=== PATIENT | female | born 1955 | race Caucasian/White ===

== ENCOUNTER → 2019-12-22 14:45 | Outpatient (BNVA) | payer MEDICARE, SELFPAY | PROVIDERS: Family Provider Family Medicine; Visit Provider Podiatrist Foot & Ankle Surgery | DX: M19.071 Primary osteoarthritis, right ankle and foot (principal) | CPT/HCPCS: 73600; 73630 ==

== ENCOUNTER 2020-04-21 06:43 | Day surgery (SDC) | payer MEDICARE, SELFPAY ==
[2020-04-20 09:45] VITALS: BMI 35.4
[2020-04-21] VITALS (8 sets, daily range): BP systolic 140–162; BP diastolic 72–87; PULSE 68–80; RESP 14–18; TEMP 36.8–36.9; O2SAT 97–100
--- NOTE | 2020-04-21 | SCC_ITS ---
Procedure Done: Ankle arthroscopy with arthroplasty of right ankle CPT code 94989 5 seconds of fluoroscopic guidance, for a cumulative dose of 0.1 mGy, was provided to Dr. Bautista by the radiology department. C-arm images of the RIGHT ankle were saved for the patient's permanent record. [facility]
--- NOTE | 2020-04-21 | XR_ITS ---
WS: [id number] XR ankle RT 2V [id number] REASON FOR EXAM: ORIF right ankle FINDINGS: Intraoperative reduction of the ankle on the right side under C-arm guidance. XR/XR ankle RT 2V [id number] IMPRESSION: Right ankle satisfactory alignment.
[2020-04-21] MEDS: sodium chloride 0.9% 1,000 ML 30 ML IV (07:14)
[2020-04-21] MEDS: ondansetron 2 mg/ML SDV 2 mL 4 MG IVP (07:16)
[2020-04-21] MEDS: midazolam 1 mg/mL INJ 2 mL 2 MG IVP (07:27)
[2020-04-21] MEDS: fentaNYL 50 mcg/mL INJ 2mL 100 MCG IVP (07:29)
--- NOTE | 2020-04-21 07:38 | ANES.PREANE2 ---
Pre-Anesthetic Assessment Pre-Anesthetic Assessment: Height/Weight: Height 1.6 m Weight 90.718 kg Temp Pulse Resp BP Pulse Ox 98.2 F 80 18 162/87 99 04/21/20 07:01 04/21/20 07:01 04/21/20 07:01 04/21/20 07:01 04/21/20 07:01 Preop Diagnosis: Right anterior ankle impingement Proposed Procedure: Operation Date: 04/21/20 08:15 Proposed Procedures p right ankle scope [id number](Right) - Cj Bautista DPM Last intake: Intake Last Liquid Date 04/20/20 Last Liquid Time 21:30 Last Solid Date 04/20/20 Last Solid Time 19:00 Social: Social History: No alcohol and No tobacco Exam: Pre-Anes Outpt Exam: alert, oriented x 3, clear to auscultation bilaterally and regular rate & rhythm Airway: Submandibular: WNL Cervical ROM: WNL MP: 2 Dentition: Other (teeth ok) History/ROS: No significant history except as noted Pulmonary: Pulmonary: None reported CV/HEM: CV/HEM: HTN : : None reported Hepatic: Hepatic: None reported GI: GI: None reported Metabolic: Metabolic: None reported Musc/skel: Musc/skel: OA/DJD Neuropsych: Comments: Trigeminal neuralgia Anesthetic Plan: ASA status: 3 Anesthesia: Anesthesia Evaluation, Eval. for regional block, General (TIVA) and Regional (specify below) (right Popliteal) Risk of > 500 ml blood loss (7ml/kg in children): No Other Pertinent Information: severe PONV Meds/Allergies Current Medications: Current Medications Generic Name Dose Route Start Last Admin Trade Name Freq PRN Reason Stop Dose Admin Sodium Chloride 1,000 mls @ 30 ml s/hr 04/21/20 07:00 04/21/20 07:14 Sodium Chloride 0.9% IV 04/22/20 06:59 30 mls/hr .Q24H AILYN Administration Ondansetron HCl 4 mg 04/21/20 06:54 04/21/20 07:16 Zofran IVP 4 mg Q5M PRN Administration NAUSEA AND VOMITI NG PFSH Anesthesia PFSH: Medical History Hypertension Trigeminal neuralgia Surgical History Hx of appendectomy Hx of cholecystectomy Family History Father Cancer Mother Heart disease Denies family history of Diabetes CAD (coronary artery disease) Clotting disorder Dementia Hyperlipidemia Psychiatric illness Chronic kidney disease (CKD) Suicide Anesthesia complication Bleeding disorder Family history of premature coronary artery disease Lung disease Hypertension Stroke Social History Smoking and tobacco status: never smoked Alcohol intake: never Current occupational status: retired Female Reproductive History: Date of last menstrual period: 11/03/09 Data Anesthesia Cardiac Studies: No Data to Display
--- NOTE | 2020-04-21 08:06 | ANES.PROC ---
Anesthesia Procedures Procedure/Date: 04/21/20 Nerve Block ^: Nerve Block 1: Main Anesthesia: general anesthesia Time Out Performed: Yes Consent: requested by attending/covering physician and risks and benefits reviewed Nerve block location: popliteal (right) Anesthesia monitors applied: pulse oximetry, EKG, BP cuff and oxygen Nerve block position: lateral (left) Anesthetic Used: ropivicaine 0.5% and with decadron (4mg) Amount of anesthesia used (mL): 30 Ultrasound used to: recognize landmarks Nerve Stimulator Used?: Yes Interscalene/Femoral BLK: 4 stimuplex 21 g needle used for position and inplane approach and visualize local anesthetic spread Injection: neg aspiration of heme Patient Tolerated Procedure: well and no complications Complications: none
--- NOTE | 2020-04-21 08:13 | W.PM.OPSUD ---
Surgery/Procedure H&P Update DATE OF PROCEDURE: April 21, 2020 DATE H&P PERFORMED: 04/17/20 H&P UPDATE INFORMATION: I have reviewed H&P completed within last 30 days, I have examined patient prior to procedure, No changes to prior documentation and H&P is in [facility] [place] on date indicated PREOP DIAGNOSIS: Right anterior ankle impingement PLANNED PROCEDURE: Operation Date: 04/21/20 08:15 Proposed Procedures p right ankle scope [id number](Right) - Cj Bautista DPM
--- NOTE | 2020-04-21 09:26 | SUR.OPER ---
0905 - PT'S - GENE- NOTIFIED OF SURGERY START
--- NOTE | 2020-04-21 09:42 | P.OP_ITS ---
Operative Report Date of procedure: April 21, 2020 Pre-op Diagnosis: Right anterior ankle impingement. Traumatic arthropathy right ankle Post-op diagnosis: same Post-op Findings: Degenerative joint disease secondary to his traumatic arthropa thy right ankle. Procedure Done: Ankle arthroscopy with arthroplasty of right ankle CPT code 86860 Implants: None Specimens removed/disposition: None Pathology: none sent Surgeon: Cj Bautista D.P.M. Clinical Resource Nurse: Anthony Anesthesia: General Estimated blood loss: 5 mL Tourniquet time: See intraoperative documentation. IV fluids: None Urine output: None Complications: None Findings: Degenerative joint disease right anterior ankle with osseous impingement due to tibial and talar enthesophyte. Significant hemorrhagic synovitis. Condition: stable Disposition: PACU Brief History: Patient sustained a traumatic injury to her right lower extremity with onset of posttraumatic arthritis. She is unable to dorsiflex her ankle at 90 degrees due to osseous impingement. Goal of surgery is to remove osseous impingement anterior ankle to improve function and reduce pain will also allow her to be fitted for brace/AFO to the right lower extremity. Risks include pain, bleeding, numbness, infection, swelling, bruising, surgical site dehiscence, fistula formation, neuritis, failure to alleviate pain and need for further surgical intervention. Procedure: Under mild sedation the patient was brought to the waiting room and placed on the operating table in supine position. A timeout was performed. Anesthesia was administered by the anesthesia service. Of note right popliteal block performed preoperatively. Well-padded pneumatic tourniquet applied to right high calf. Right thigh donnelly was placed and secured to the OR table. Right lower extremity was scrubbed, prepped and draped utilizing normal aseptic technique. Right foot and ankle were examined a weighted with Esmarch bandage and tourniquet was inflated 250 mmHg. Attention was directed to the right anterior ankle where soft tissue landmarks and bony landmarks were palpated. Palpated medial and lateral malleolus. Able to palpate the tibialis anterior and peroneal tertius. Ankle joint was insufflated with 10 cc of lactated Ringer's utilizing 18-gauge needle at the medial portal site this was just medial to the tibialis anterior tendon at the level of the ankle joint. Small incision was made with a #15 blade and dissection was carried down through the joint capsule utilizing curved mosquito hemostats. Medial portal was established with cannula and obturator and a 4.0 30 mm angled arthroscope was introduced into the ankle joint. Utilizing arthroscopy and direct visualization a lateral portal was established in like fashion just lateral to the border of the proneness tertius tendon and a 3.5 mm shaver was utilized to remove hemorrhagic synovitis at the anterior and medial/lateral ankle gutters with inspection of anterior ankle, there is arthrosis with bony overgrowth at the tibia and talus, significant synovitis both hemorrhagic and nonhemorrhagic, cartilage loss also appreciated. Next a a cromial blaster 4.0 was utilized to resect the exostosis of the distal anterior tibia and dorsal talus this required extensive debridement to evacuate the osseous impingement. Upon removal ankle joint was able to be dorsiflexed to 90 degrees. Ankle joint was irrigated utilizing scope and suction from the bur. Scope and instrumentation removed. Incision site was closed both medially and laterally with 4-0 nylon. Incision site was dressed with Adaptic, sterile 4 x 4's, Kerlix and Hoang wrap. Cam boot was applied. Tourniquet was deflated and a prompt hyperemic response was noted to the distal digits of the right foot. Patient tolerated the procedure and anesthesia well and was transferred to the PACU with vital signs stable and vascular status intact. Following a period of postoperative monitoring she will be discharged home was given pain medication and antinausea medication may be weightbearing as tolerated in the boot overall she is to decrease her activities and rest/elevate. Will follow-up next week. Was provided my cell phone numbers to contact me with any postoperative questions or concerns.
[2020-04-21] MEDS: oxyCODONE-APAP 10-325 mg Tablet 1 TAB PO (12:07)
== END 2020-04-21 12:38 | disposition home or self-care (01) ==
PROVIDERS: PCP Family Medicine; Visit Provider Podiatrist Foot & Ankle Surgery
PROC: (CPT 27700; principal; 2020-04-21 08:15)
DX: M25.871 Other specified joint disorders, right ankle and foot (principal); M12.871 Other specific arthropathies, not elsewhere classified, right ankle and foot; I10 Essential (primary) hypertension
CPT/HCPCS: 27700; 12345; 73600; 76000; 96365; 96374; 96375; J0690; J1100; J2250; J2405; J2704; J2795; J3010; J3490; J7030

== ENCOUNTER 2020-10-12 09:12 | Outpatient (CLI) | payer MEDICARE, SELFPAY ==
--- NOTE | 2020-10-12 09:20 | MM_ITS ---
WS: [id number] BILATERAL DIGITAL SCREENING MAMMOGRAPHY WITH CAD CLINICAL INFORMATION: SCREENING HISTORY: Screening mammogram. No current complaints. COMPARISON: TECHNIQUE: Bilateral CC and MLO views. FINDINGS: Scattered fibroglandular densities bilaterally. No suspicious focal mass, asymmetry, calcifications, or architectural distortion. No evidence of malignancy. A few punctate calcifications. MM/[place] [id number] IMPRESSION: BI-RADS: 2-Benign FOLLOW UP: 1 Year Follow-up Recommend return to annual screening mammography.
== END 2020-10-12 09:13 | disposition home or self-care (01) ==
LOC: RADSHAW 09:15
PROVIDERS: PCP Family Medicine; Visit Provider Family Medicine
DX: Z12.31 Encounter for screening mammogram for malignant neoplasm of breast (principal)
CPT/HCPCS: 77067

== ENCOUNTER 2022-01-17 09:29 | Outpatient (CLI) | payer MEDICARE, SELFPAY ==
--- NOTE | 2022-01-17 09:38 | MM_ITS ---
WS: [id number] BILATERAL 3D TOMOSYNTHESIS DIGITAL SCREENING MAMMOGRAPHY WITH CAD CLINICAL INFORMATION: SCREENING HISTORY: Screening mammogram. No current complaints. COMPARISON: October 12, 2020 TECHNIQUE: Bilateral CC and MLO views. FINDINGS: Scattered fibroglandular densities bilaterally. Incidental punctate calcifications central LEFT breas t are unchanged. Long-term stability asymmetric density central RIGHT breast on the CC view. No suspi cious focal mass, asymmetry, calcifications, or architectural distortion. No evidence of malignancy. MM/[place] [id number] IMPRESSION: BI-RADS: 2-Benign FOLLOW UP: 1 Year Follow-up Recommend return to annual screening mammography.
== END 2022-01-17 09:30 | disposition home or self-care (01) ==
PROVIDERS: PCP Family Medicine; Visit Provider Family Medicine
DX: Z12.31 Encounter for screening mammogram for malignant neoplasm of breast (principal)
CPT/HCPCS: 77063; 77067

== ENCOUNTER 2023-01-30 07:39 | Outpatient (CLI) | payer MEDICARE, SELFPAY ==
--- NOTE | 2023-01-30 08:46 | MM_ITS ---
WS: [id number] VIEWS: MLO and CC views both breasts. 3D digital tomosynthesis is also included in this exam. Comparison made with prior exam of 02/28/2016, 03/04/2017, 03/23/2018, 04/05/2019, 10/12/2020, 01/17/2022.. Findings: There was no sign of mass, architectural distortion or suspicious calcification in either breast. Abhishek g term stable appearing nodular density in the central right breast.Scattered fibroglandular densitie s in both breasts. MM/[place] [id number] Impression: BI-RADS: 2-Benign FOLLOW-UP: 1 Year Follow-up This mammogram was also analyzed by the Computer Aided Detection System R2 Imag e Window Draper.
== END 2023-01-30 07:40 | disposition home or self-care (01) ==
PROVIDERS: PCP Family Medicine; Visit Provider Family Medicine
DX: Z12.31 Encounter for screening mammogram for malignant neoplasm of breast (principal)
CPT/HCPCS: 77063; 77067

== ENCOUNTER 2024-02-05 08:42 | Outpatient (CLI) | payer MEDICARE, SELFPAY ==
--- NOTE | 2024-02-05 08:46 | MM_ITS ---
WS: [id number] BILATERAL SCREENING DIGITAL TOMOSYNTHESIS MAMMOGRAM WITH CAD HISTORY: SCREENING COMPARISON: 01/30/2023, 03/23/2018 and 10/12/2020 Bilateral CC and MLO views with tomosynthesis and synthetic mammography submitted. Computer aided det ection analyzed. Breast composition: There are scattered areas of fibroglandular density. No suspicious masses, microc alcifications or architectural distortion. Focal asymmetry in the central RIGHT breast has been stabl e on multiple prior examinations. No suspicious mass or grouping of calcifications. IMPRESSION: MM/[place] [id number] BI-RADS: 2-Benign FOLLOW UP: 1 Year Follow-up
== END 2024-02-05 08:43 | disposition home or self-care (01) ==
LOC: RAD 08:43
PROVIDERS: PCP Family Medicine; Visit Provider Family Medicine
DX: Z12.31 Encounter for screening mammogram for malignant neoplasm of breast (principal)
CPT/HCPCS: 77063; 77067

== ENCOUNTER 2025-02-16 08:32 | Outpatient (CLI) | payer MEDICARE, SELFPAY ==
--- NOTE | 2025-02-16 08:54 | MM_ITS ---
WS: [id number] BILATERAL SCREENING DIGITAL TOMOSYNTHESIS MAMMOGRAM WITH CAD HISTORY: SCREENING COMPARISON: 02/05/2024, 01/30/2023, 01/17/2022 Bilateral CC and MLO views with tomosynthesis and synthetic mammography submitted. Computer aided detection analyzed. Breast composition: The breasts are almost entirely fatty. No suspicious masses, microcalcifications or architectural distortion. Stable focal asymmetry in the central RIGHT breast posterior to the nipple. Benign vascular calcifications LEFT breast. MM/MM scr [place] tomosynthesis [id number] IMPRESSION: BI-RADS: 2 - Benign. FOLLOW UP: 1 Year Follow-up
== END 2025-02-16 08:33 | disposition home or self-care (01) ==
PROVIDERS: PCP Family Medicine; Visit Provider Family Medicine
DX: Z12.31 Encounter for screening mammogram for malignant neoplasm of breast (principal); R92.313 Mammographic fatty tissue density, bilateral breasts; N64.89 Other specified disorders of breast; R92.1 Mammographic calcification found on diagnostic imaging of breast
CPT/HCPCS: 77063; 77067

== ENCOUNTER 2025-03-20 05:11 | Inpatient (IN) | payer MEDICARE, SELFPAY ==
[2025-03-20] VITALS (9 sets, daily range): BP systolic 139–162; BP diastolic 65–83; PULSE 95–108; RESP 16–18; TEMP 36.3–36.8; O2SAT 91–96; BMI 35.9
--- NOTE | 2025-03-20 05:28 | XRR_ITS ---
PROCEDURE INFORMATION: Exam: XR Left Femur Exam date and time: 03/20/2025 5:27 AM Age: 69 years old Clinical indication: Injury or trauma; Fall; Blunt trauma; Thigh or upper leg; Left TECHNIQUE: Imaging protocol: Radiologic exam of the left femur. Views: 2 views. COMPARISON: No relevant prior studies available. FINDINGS: Bones/joints: Marked degenerative changes of the hip. Nondisplaced intertrochanteric fracture of the proximal left femur present, poorly visualized. Soft tissues: Unremarkable. XR/XR femur LT min 2V* [id number] IMPRESSION: Nondisplaced fracture of the proximal femur.
--- NOTE | 2025-03-20 05:29 | XRR_ITS ---
PROCEDURE INFORMATION: Exam: XR Chest Exam date and time: 03/20/2025 5:38 AM Age: 69 years old Clinical indication: Injury or trauma; Fall; Blunt trauma (contusions or hematomas) TECHNIQUE: Imaging protocol: Radiologic exam of the chest. Views: 1 view. COMPARISON: No relevant prior studies available. FINDINGS: Lungs: Unremarkable. No consolidation. Pleural spaces: Unremarkable. No pleural effusion. No pneumothorax. Heart/Mediastinum: See Vasculature finding. Vasculature: Mild cardiomegaly and uncoiling of the thoracic aorta. Bones/joints: Unremarkable. XR/XR chest 1V portable [id number] IMPRESSION: No acute findings.
--- NOTE | 2025-03-20 05:43 | ECG_ITS ---
[facility] Date: 2025-03-20 Pat Name: Wendy Sheldon Department: Room: EDIP Gender: Female Grain Operator: : [id number] Requested By: John Garcia Order Number: [id number] Lamine MD: Shoshana Benitez M.D. Measurements Intervals [place] Rate: 99 P: 65 WA: 196 QRS: 83 QRSD: 96 T: 62 QT: 343 QTc: 441 Interpretive Statements SINUS RHYTHM No previous ECG available for comparison Electronically Signed On 03-20-2025 12:28:53 CDT by Shoshana Benitez M.D. [email or web address]
--- NOTE | 2025-03-20 05:50 | W.ED.FALL ---
HPI - Fall General: Chief Complaint: Fall Stated Complaint: FALL, LEFT LEG AND LEFT HIP PAIN Time Seen by Provider: 03/20/25 05:16 History of Present Illness: 69-year-old female who walks with a walker. She presents after a fall when she was on her way to lay in her chair in the living room. She tripped. She fell on her left side. She complains of left thigh pain from her hip to her knee. She did not hit her head. She is not anticoagulated. Ambulance was called. She was given pain medication with some improvement. Related Data Home Medications ?Medication ?Instructions ?Recorded ?Confirmed lisinopril 5 mg tablet 5 mg PO DAILY 12/22/19 05/18/20 oxcarbazepine 300 mg tablet 300 mg PO BID 12/22/19 05/18/20 Previous Rx's ?Medication ?Instructions ?Recorded ondansetron HCl 8 mg tablet 8 mg PO Q8H #30 tabs 04/17/20 (Zofran) scopolamine base 1 mg over 3 days 1 patch transdermal Q3D PRN nausea 04/17/20 transdermal patch and vomiting #1 ea oxycodone-acetaminophen 10 mg-325 1 tab PO Q6H PRN pain 7 days #28 04/19/20 mg tablet (Percocet) tabs ciprofloxacin HCl 500 mg tablet 500 mg PO Q12H 10 days #20 tabs 05/11/20 clindamycin HCl 300 mg capsule 300 mg PO TID 10 days #30 caps 05/11/20 amoxicillin 875 mg-potassium 1 tab PO Q12H 7 days #14 tabs 05/24/20 clavulanate 125 mg tablet (Augmentin) mupirocin 2 % topical ointment 1 applic topical BID #30 grams 05/25/20 [place] AFO #1 ea 05/29/20 Allergies Allergy/AdvReac Type Severity Reaction Status Date / Time digoxin (From Lanoxin) Allergy Unknown Verified 03/20/25 05:20 Sulfa (Sulfonamide Allergy algy-rash Verified 03/20/25 05:20 Antibiotics) [facility] PFSH: Medical History (Updated 03/20/25 @ 05:51 by John Conteh DO) Hypertension Trigeminal neuralgia Surgical History Hx of cholecystectomy Hx of appendectomy Family History Father Cancer Mother Heart disease Denies family history of Diabetes CAD (coronary artery disease) Clotting disorder Dementia Hyperlipidemia Psychiatric illness Chronic kidney disease (CKD) Suicide Anesthesia complication Bleeding disorder Family history of premature coronary artery disease Lung disease Hypertension Stroke Social History Smoking and tobacco/nicotine status: never used tobacco/nicotine Alcohol intake: never Substance/Drug Use: never Current occupational status: retired Physical Exam Const: GENERAL APPEARANCE: cooperative HENMT: COMMON NORMALS: normocephalic, atraumatic and Normal external nose present HEAD & SCALP: normocephalic and atraumatic FACE & SINUS: normal facial exam and face symmetric NOSE: Normal external nose present Eye: COMMON NORMALS: Equal, round and reactive pupils present and EOMs intact bilaterally PUPIL: Yes Equal, round and reactive pupils present Neck/C-Spine: GENERAL: Yes trachea midline Chest: CHEST: Yes Symmetrical chest wall rise Resp: COMMON NORMALS: normal respiratory effort, No retractions, No use of accessory muscles and clear to auscultation bilaterally AUSCULTATION: clear to auscultation bilaterally Cardio: COMMON NORMALS: regular rate and regular rhythm RATE: regular rate RHYTHM: regular rhythm GI: COMMON NORMALS: Normal to inspection, nondistended, normoactive bowel sounds present Extremity: NARRATIVE EXTREMITY EXAM: Exam of the left lower extremity reveals flexion and external rotation deformity. She is tender along the anterior and lateral hip. No knee tenderness. No tenderness distal to the knee. Pulses are normal. Sensation intact. Neuro: LENNY COMA SCALE: document GCS findings Stinnett coma scale eye opening: Spontaneous Stinnett coma scale verbal response: Orientated Stinnett coma scale motor response: Obey commands Lenny coma scale total score: 15 SENSORY EXAM: Yes extremities (intact) Psych: COMMON NORMALS: speech normal SPEECH: Yes normal speech Skin: COMMON NORMALS: no rashes or lesions noted GENERAL SKIN EXAM: no rashes or lesions noted Course Vital Signs: Vital signs: Vital Signs Temperature 97.4 F L 03/20/25 05:15 Pulse Rate 100 03/20/25 05:15 Respiratory Rate 18 03/20/25 05:15 Blood Pressure 162/79 03/20/25 05:15 Pulse Oximetry 95 03/20/25 05:15 Oxygen Delivery Me thod Room Air 03/20/25 05:15 MDM - Fall Medical Decision Making This patient has a left intertrochanteric fracture that is nondisplaced. Consulted orthopedics. They will see the patient. Hospitalist is aware. XR interpretation done by ED provider, pending radiology final review Discharge Plan Discharge Patient Disposition: Admitted As Inpatient Clinical Impression: Closed fracture of left hip Condition: Stable Coding Level of Care Code ED Feeder Worker Power Unit Operator for Nura Mclean
[2025-03-20] MEDS: ondansetron 2 mg/ML SDV 2 mL 4 MG IVP ×3 (06:04→17:14)
[2025-03-20] MEDS: morphine 4 mg/mL SDV 1 mL IVP ×3 (06:06→10:13)
[2025-03-20 06:19] LABS: Basophils # 0.1 10^3/uL (0.0-0.1); Basophils % 0.5 %; Eosinophils % 0.4 %; Hematocrit 35.9 % (36-47); Lymphocytes % 18.4 %; Mean Corpuscular HGB Conc 33.4 g/dL (30-55); Mean Corpuscular Hemoglobin 28.7 pg (27-33); Mean Corpuscular Volume 85.9 fl (85-98); Mean Platelet Volume 8.8 fL (7.4-10.4); Monocytes # 0.8 10^3/uL (0.2-0.9); Monocytes % 7.2 %; Neutrophils % 72.8 %; Nucleated Red Blood Cells % 0 %; Platelet Count 376 10^3/cmm (157-399); Red Blood Count 4.18 10^6/uL (3.85-5.65); Red Cell Distribution Width 13.2 % (12.1-15.1); White Blood Count 10.57 10^3/uL (3.29-11.43)
[2025-03-20 06:30] LABS: Bilirubin Urine Negative (Negative); Blood Urine Trace (Negative); Glucose Urine UA Negative (Normal); Ketones Urine Negative (Negative); Leukocyte Esterase Urine 2+ (Negative); Nitrate Urine Positive (Negative); Protein Urine 2+ (Negative); Urine Appearance Turbid (CLEAR); Urine Color Yellow (Yellow)
[2025-03-20 06:31] LABS: INR 0.86 (0.8-1.2)
[2025-03-20 06:32] LABS: Partial Thromboplastin Time 26.8 SECONDS (23.9-36.7)
[2025-03-20 06:35] LABS: Add Urine Microscopic? YES; Bacteria Urine 4+ /hpf; Hyaline Casts Urine 7.01 /lpf; Squamous Epithelial Cell Urine 0-5 /hpf (0-5); WBC Urine 51-100 /hpf (0-5)
[2025-03-20 06:38] LABS: Alanine Aminotransferase 14 U/L (0-33); Albumin Level 4.1 g/dL (3.5-5.2); Alkaline Phosphatase 90 U/L (35-105); Anion Gap 12.9 (5-19); Aspartate Amino Transferase 17 U/L (0-32); Blood Urea Nitrogen 14 mg/dL (8-23); Calcium 9.4 mg/dL (8.5-10.5); Carbon Dioxide 26 mmol/L (22-29); Chloride 97 mmol/L (98-107); Creatinine Clr Calc Pharmacy 70.5236; Globulin 2.6 g/dL (1.3-4.6); Glucose 136 mg/dL (65-115); Osmolality Calculated 277 mOsm/kg (285-295); Potassium 3.9 mmol/L (3.5-5.1); Sodium 132 mmol/L (136-145); Total Bilirubin 0.2 mg/dL (0.15-1.2); Total Protein 6.7 g/dL (6.6-8.7)
[2025-03-20 07:00] LABS: UA Slide Review UA Slide Review Perf
[2025-03-20 07:01] LABS: Amorphous Sediment Urine 2+ /hpf
[2025-03-20 07:02] LABS: Add Urine Culture? Yes
--- NOTE | 2025-03-20 08:04 | PC.PHAR ---
Patient 's Spouse states Patient takes multiple Herbs and Supplements. I listed a few that he could name . Spouse states there is a lot more.
--- NOTE | 2025-03-20 08:52 | PM.CONSULT ---
Providers/Reason For Consult Consulting Physician/Specialty*: Hospitalist Reason for Consult*: Left intertrochanteric hip fracture Attending Physician: Dede Allen MD Primary Care Provider: Lucinda Sauceda MD History of Present Illness History of Present Illness Wendy Sheldon is a 69 year old female who went to sit down in chair missed a chair and sustained a nondisplaced left intertrochanteric hip fracture Review of Systems General: Reports: 10 or more systems reviewed and unremarkable except in HPI and below Const: Denies: fever(s) or chills Eyes: Denies: change in vision Card: Denies: chest pain or palpitations Resp: Denies: dyspnea or productive cough GI: Denies: abdominal pain, nausea or vomiting : Denies: flank pain Musc: Reports: extremity pain, extremity swelling and deformity Skin/Breast: Reports: surgical incision; Denies: rash Neuro: Denies: numbness in extremities, sensory changes or frequent falls Psych: Denies: suicidal ideation Lopez/Lymph: Denies: easy bruising Medications/Allergies Home Medications ?Medication ?Instructions ?Recorded ?Confirmed ?Last Taken ?Type calcium carbonate (Calcium 600) 600 mg PO DAILY 03/20/25 03/20/25 03/19/25 History cholecalciferol (vitamin D3) 125 125 mcg PO DAILY 03/20/25 03/20/25 03/19/25 History mcg (5,000 unit) tablet (Vitamin D3) lisinopril 10 mg tablet 10 mg PO DAILY 03/20/25 03/20/25 03/19/25 History lisinopril 5 mg tablet 5 mg PO BID 03/20/25 03/20/25 03/19/25 History magnesium carb,citrate,oxide 300 mg PO DAILY 03/20/25 03/20/25 03/19/25 History oxcarbazepine 300 mg tablet 300 mg PO QID 03/20/25 03/20/25 03/20/25 04:00 History Allergies Allergy/AdvReac Type Severity Reaction Status Date / Time digoxin (From Lanoxin) Allergy Unknown Verified 03/20/25 05:20 Sulfa (Sulfonamide Allergy algy-rash Verified 03/20/25 05:20 Antibiotics) PFSH Acute PFSH: Medical History (Updated 03/20/25 @ 08:56 by Romeo Woo DO) Hypertension Trigeminal neuralgia Surgical History Hx of cholecystectomy Hx of appendectomy Family History Father Cancer Mother Heart disease Denies family history of Diabetes CAD (coronary artery disease) Clotting disorder Dementia Hyperlipidemia Psychiatric illness Chronic kidney disease (CKD) Suicide Anesthesia complication Bleeding disorder Family history of premature coronary artery disease Lung disease Hypertension Stroke Social History Smoking and tobacco/nicotine status: never used tobacco/nicotine Alcohol intake: never Substance/Drug Use: never Current occupational status: retired Vitals/I&O/Wt Last Vital Signs Temp 97.4 F L 03/20/25 05:15 Pulse 98 03/20/25 06:07 Resp 18 03/20/25 06:07 BP 162/79 03/20/25 06:07 Pulse Ox 94 03/20/25 06:07 O2 Del Method Room Air 03/20/25 06:07 03/19/25 03/20/25 03/20/25 22:59 06:59 14:59 Intake Total 0 / 0 Balance 0 / 0 Weight last 48 hrs Weight 203 lb Physical Exam Narrative: Alert and oriented x 3 Head is normocephalic atraumatic Respirations are intact No evidence of any rashes or infection 5/5 strength in bilateral upper and lower extremities Sensation intact in all extremities Left hip painful to move X-ray shows patient has severe osteoarthritis of the left hip. Urinary Catheter Management: Sheridan: Cath Placed During This Visit: yes Urinary Catheter Date of Insertion: 03/20/25 Urinary Catheter Time of Insertion: 06:00 Data 03/20/25 05:58 03/20/25 05:58 A&P Assessment and plan (1) Closed fracture of left hip: Plan to do a left hip nail tomorrow N.p.o. after midnight PDMP PDMP Reviewed: Not Reviewed Consult Attestations Medical Necessity Statement: Per primary service Coding Level of Care Code Acute Code for Chg Fwd Diagnoses Closed fracture of left hip, initial encounter S72.002A Encounter type: initial encounter
--- NOTE | 2025-03-20 09:53 | PC.NURSE ---
PATIENT REPORTS SHE HAS TRIGEMINAL NEURALGIA AND HAS TO TAKE HER MEDICATIONS EVERY 6 HOURS. HAS PATIENTS MEDICATION AND ADMINISTERED TO PATIENT. DR. GASTELUM NOTIFIED.
[2025-03-20] MEDS: lisinopril 10 mg Tablet PO (10:14)
[2025-03-20] MEDS: lisinopril 5 mg Tablet PO (11:16)
--- NOTE | 2025-03-20 11:27 | PM.HP ---
Providers/Chief Complaint Admitting Physician: Bee Hodgson MD Primary Care Provider: Lucinda Sauceda MD Chief Complaint: FALL, LEFT LEG AND LEFT HIP PAIN History of Present Illness Wendy Sheldon is a 69 year old female with a past medical history of sciatica who presented to the hospital with chief complaints of having taken a fall at home. Patient reports that she was getting out of bed to walk to the couch because her back had been bothering her. She was walking with her cane however at some point and making it from the bed to the bedside couch, she fell along the way. She states this was a mechanical fall. She was unable to get back up. She was brought to the emergency room where she was found to have a nondisplaced fracture of the proximal femur. Review of Systems General: Reports: 10 or more systems reviewed and unremarkable except in HPI and below Const: Denies: fever(s), chills or body aches Eyes: Denies: change in vision, blurry vision or photophobia ENMT: Reports: hoarseness; Denies: throat pain, enlarged tonsils, odynophagia or nasal congestion Card: Denies: chest pain, palpitations, irregular heart rhythm, edema, swelling of feet/ankles, lightheadedness, pre-syncope, dyspnea on exertion or orthopnea Resp: Denies: dyspnea, productive cough, non-productive cough, wheezing, stridor, pain on inspiration, change in phlegm color, hemoptysis or chest congestion GI: Denies: abdominal pain, nausea, vomiting, hematemesis, coffee ground emesis, dysphagia, heartburn, diarrhea, constipation, GI cramping, change in stool character, hematochezia or melena : Denies: flank pain, difficulty voiding, dysuria, urinary frequency, urinary urgency, urinary hesitancy or hematuria Musc: Denies: neck pain, back pain, extremity pain, joint swelling, joint warmth or deformity Neuro: Denies: headache(s), numbness in extremities, weakness in extremities, sensory changes, difficulty walking, frequent falls, dizziness, vertigo, behavioral changes, Slurred speech present or seizure-like activity Psych: Denies: anxiety, depression, suicidal ideation or homicidal ideation Endo: Denies: polyuria, polydipsia, tired all the time, cold intolerance or hot flashes Lopez/Lymph: Denies: easy bruising or easy bleeding Medications/Allergies Home Medications ?Medication ?Instructions ?Recorded ?Confirmed ?Last Taken ?Type calcium carbonate (Calcium 600) 600 mg PO DAILY 03/20/25 03/20/25 03/19/25 History cholecalciferol (vitamin D3) 125 125 mcg PO DAILY 03/20/25 03/20/25 03/19/25 History mcg (5,000 unit) tablet (Vitamin D3) lisinopril 10 mg tablet 10 mg PO DAILY 03/20/25 03/20/25 03/19/25 History lisinopril 5 mg tablet 5 mg PO BID 03/20/25 03/20/25 03/19/25 History magnesium carb,citrate,oxide 300 mg PO DAILY 03/20/25 03/20/25 03/19/25 History oxcarbazepine 300 mg tablet 300 mg PO QID 03/20/25 03/20/25 03/20/25 04:00 History Allergies Allergy/AdvReac Type Severity Reaction Status Date / Time digoxin (From Lanoxin) Allergy Unknown Verified 03/20/25 05:20 Sulfa (Sulfonamide Allergy algy-rash Verified 03/20/25 05:20 Antibiotics) PFSH Acute PFSH: Medical History Hypertension Trigeminal neuralgia Surgical History Hx of cholecystectomy Hx of appendectomy Family History Father Cancer Mother Heart disease Denies family history of Diabetes CAD (coronary artery disease) Clotting disorder Dementia Hyperlipidemia Psychiatric illness Chronic kidney disease (CKD) Suicide Anesthesia complication Bleeding disorder Family history of premature coronary artery disease Lung disease Hypertension Stroke Social History Smoking and tobacco/nicotine status: never used tobacco/nicotine Alcohol intake: never Substance/Drug Use: never Current occupational status: retired Vitals/I&O/Wt Last Vital Signs Temp 97.4 F L 03/20/25 05:15 Pulse 105 H 03/20/25 10:34 Resp 18 03/20/25 06:07 BP 139/65 03/20/25 10:34 Pulse Ox 91 05/18/25 10:34 O2 Del Method Room Air 03/20/25 10:34 03/19/25 03/20/25 03/20/25 22:59 06:59 14:59 Intake Total 0 / 0 Balance 0 / 0 Weight last 48 hrs Weight 92.079 kg Physical Exam Narrative: General: No acute distress, AO x3 HEENT: PERRLA, pupils bilaterally equal and reactive, pallors not present Chest: Normal vesicular breath sounds, no added sounds, equal good air entry bilaterally CVS: S1-S2 regular, no murmurs, no tachycardia, no gallops, no rubs Abdomen: Soft, nontender, no organomegaly, bowel sounds present Neuro: No focal deficits, no facial deformity, AO x3, power 5/5 in all limbs Urinary Catheter Management: Sheridan: Cath Placed During This Visit: yes Reason for Continuing Indwelling Catheter: Required Immobilization for Trauma or Surgery or Anesthesia Urinary Catheter Date of Insertion: 03/20/25 Urinary Catheter Time of Insertion: 06:00 Data 03/20/25 05:58 03/20/25 05:58 Other Labs: Radiology Impressions Femur X-Ray 03/20/25 05:28 IMPRESSION: Nondisplaced fracture of the proximal femur. Chest X-Ray 03/20/25 05:29 IMPRESSION: No acute findings. Laboratory Results WBC 10.57 10^3/uL (3.29-11.43) 03/20/25 05:58 RBC 4.18 10^6/uL (3.85-5.65) 03/20/25 05:58 Hgb 12.00 g/dL (11.27-16.99) 03/20/25 05:58 Hct 35.9 % (36-47) L 03/20/25 05:58 MCV 85.9 fl (85-98) 03/20/25 05:58 MCH 28.7 pg (27-33) 03/20/25 05:58 MCHC 33.4 g/dL (30-55) 03/20/25 05:58 RDW 13.2 % (12.1-15.1) 03/20/25 05:58 Plt Count 376 10^3/cmm (157-399) 03/20/25 05:58 MPV 8.8 fL (7.4-10.4) 03/20/25 05:58 Neut % (Auto) 72.8 % 03/20/25 05:58 Lymph % (Auto) 18.4 % 03/20/25 05:58 [place] % (Auto) 7.2 % 03/20/25 05:58 Eos % (Auto) 0.4 % 03/20/25 05:58 Baso % (Auto) 0.5 % 03/20/25 05:58 Neut # (Auto) 7.70 10^3/uL (1.8-7.7) 03/20/25 05:58 Lymph # (Auto) 2.0 10^3/uL (0.8-4.8) 03/20/25 05:58 [place] # (Auto) 0.8 10^3/uL (0.2-0.9) 03/20/25 05:58 Eos # (Auto) 0.0 10^3/uL (0.0-0.8) 03/20/25 05:58 Baso # (Auto) 0.1 10^3/uL (0.0-0.1) 03/20/25 05:58 Nucleated RBC % (auto) 0 % 03/20/25 05:58 Nucleated RBCs # 0.0 /100WBC 03/20/25 05:58 PT 12.40 SECONDS (12.1-14.9) 03/20/25 05:58 INR 0.86 (0.8-1.2) 03/20/25 05:58 APTT 26.8 SECONDS (23.9-36.7) 03/20/25 05:58 Sodium 132 mmol/L (136-145) L 03/20/25 05:58 Potassium 3.9 mmol/L (3.5-5.1) 03/20/25 05:58 Chloride 97 mmol/L (98-107) L 03/20/25 05:58 Carbon Dioxide 26 mmol/L (22-29) 03/20/25 05:58 Anion Gap 12.9 (5-19) 03/20/25 05:58 BUN 14 mg/dL (8-23) 03/20/25 05:58 Creatinine 0.5 mg/dL (0.5-0.9) 03/20/25 05:58 GFR Calculation 122.0 mL/min (90-130) 03/20/25 05:58 Glucose 136 mg/dL (65-115) H 03/20/25 05:58 Calculated Osmolality 277 mOsm/kg (285-295) L 03/20/25 05:58 Calcium 9.4 mg/dL (8.5-10.5) 03/20/25 05:58 Total Bilirubin 0.2 mg/dL (0.15-1.2) 03/20/25 05:58 AST 17 U/L (0-32) 03/20/25 05:58 ALT 14 U/L (0-33) 03/20/25 05:58 Alkaline Phosphatase 90 U/L (35-105) 03/20/25 05:58 Total Protein 6.7 g/dL (6.6-8.7) 03/20/25 05:58 Albumin 4.1 g/dL (3.5-5.2) 03/20/25 05:58 Globulin 2.6 g/dL (1.3-4.6) 03/20/25 05:58 Urine Color Yellow (Yellow) 03/20/25 06:00 Urine Appearance Turbid (CLEAR) A 03/20/25 06:00 Urine pH 7.0 (5-7) 03/20/25 06:00 Ur Specific [place] 1.020 (1.005-1.030) 03/20/25 06:00 Urine Protein 2+ (Negative) A 03/20/25 06:00 Urine Glucose (UA) Negative (Normal) 03/20/25 06:00 Urine Ketones Negative (Negative) 03/20/25 06:00 Urine Blood Trace (Negative) A 03/20/25 06:00 Urine Nitrate Positive (Negative) A 03/20/25 06:00 Urine Bilirubin Negative (Negative) 03/20/25 06:00 Urine Urobilinogen 1.0 mg/dL (Negative) 03/20/25 06:00 Ur Leukocyte Esterase 2+ (Negative) A 03/20/25 06:00 Urine RBC 6-10 /hpf (0-2) 03/20/25 06:00 Urine WBC 51-100 /hpf (0-5) H 03/20/25 06:00 Ur Squamous Epith Cells 0-5 /hpf (0-5) 03/20/25 06:00 Amorphous Sediment 2+ /hpf 03/20/25 06:00 Urine Bacteria 4+ /hpf (NONE) H 03/20/25 06:00 Hyaline Casts 7.01 /lpf 03/20/25 06:00 A&P Assessment and plan (1) Closed fracture of left hip: 69-year-old lady presenting with a mechanical fall, past history of sciatica, x-ray shows closed fracture of the left hip as noted above. Patient evaluated by orthopedics, plan for left hip nail tomorrow N.p.o. postmidnight In the interim pain management with IV hydrocodone, alternating with IV Toradol, p.o. hydrocodone APAP. Continue home dose of oxcarbazepine which patient takes for chronic pain. Continue antihypertensive regimen as per home dosing with lisinopril. Plan DVT prophylaxis: Lovenox 40 subcutaneously Full code PDMP PDMP Reviewed: Not Reviewed Attestations Medical Necessity Statement*: Greater than 2 midnight stay is anticipated Coding Level of Care Code Acute Code for Chg Fwd Diagnoses Closed fracture of left hip, initial encounter S72.002A Encounter type: initial encounter
[2025-03-20] MEDS: enoxaparin 40 mg/0.4 mL Syringe SUBCUT (13:17)
[2025-03-20] MEDS: acetaminophen 325 mg Tablet 650 MG PO (13:18)
[2025-03-20] MEDS: OXcarbazepine 300 mg Tablet PO ×2 (16:11→21:28)
[2025-03-20] MEDS: sodium chloride 0.9% 1,000 ML 75 ML IV (17:13)
[2025-03-20] MEDS: cefTRIAXone 1,000 mg SDV 1000 MG IVP (17:17)
[2025-03-20] MEDS: HYDROmorphone 0.5 MG/0.5 ML INJ IVP (17:17)
[2025-03-20] MEDS: ketorolac 30 mg/mL INJ 15 MG IVP (21:28)
[2025-03-20] MEDS: lisinopril 10 mg Tablet 5 MG PO (21:28)
[2025-03-21] VITALS (21 sets, daily range): BP systolic 122–189; BP diastolic 65–98; PULSE 71–99; RESP 12–19; TEMP 36.1–36.8; O2SAT 90–99
[2025-03-21] MEDS: ondansetron 2 mg/ML SDV 2 mL 4 MG IVP ×4 (00:26→13:54)
[2025-03-21] MEDS: ketorolac 30 mg/mL INJ 15 MG IVP ×4 (03:00→20:52)
[2025-03-21] MEDS: OXcarbazepine 300 mg Tablet PO ×4 (04:05→21:56)
[2025-03-21 04:28] LABS: Basophils % 0.3 %; Eosinophils # 0.1 10^3/uL (0.0-0.8); Eosinophils % 0.8 %; Hematocrit 32.7 % (36-47); Lymphocytes # 1.5 10^3/uL (0.8-4.8); Lymphocytes % 22.7 %; Mean Corpuscular Hemoglobin 28.2 pg (27-33); Mean Corpuscular Volume 85.4 fl (85-98); Mean Platelet Volume 8.7 fL (7.4-10.4); Monocytes # 0.7 10^3/uL (0.2-0.9); Monocytes % 11.2 %; Neutrophils % 64.7 %; Nucleated Red Blood Cells % 0 %; Platelet Count 295 10^3/cmm (157-399); Red Blood Count 3.83 10^6/uL (3.85-5.65); Red Cell Distribution Width 13.2 % (12.1-15.1); White Blood Count 6.49 10^3/uL (3.29-11.43)
[2025-03-21 04:46] LABS: Alanine Aminotransferase 13 U/L (0-33); Albumin Level 3.5 g/dL (3.5-5.2); Alkaline Phosphatase 72 U/L (35-105); Blood Urea Nitrogen 11 mg/dL (8-23); Carbon Dioxide 26 mmol/L (22-29); Chloride 95 mmol/L (98-107); Creatinine Clr Calc Pharmacy 70.5236; Globulin 2.5 g/dL (1.3-4.6); Glomerular Filtration Rate 157.8 mL/min (90-130); Glucose 98 mg/dL (65-115); Osmolality Calculated 269 mOsm/kg (285-295); Sodium 130 mmol/L (136-145); Total Bilirubin 0.3 mg/dL (0.15-1.2)
[2025-03-21 04:52] LABS: Anion Gap 13.3 (5-19); Aspartate Amino Transferase 22 U/L (0-32); Potassium 4.3 mmol/L (3.5-5.1)
[2025-03-21] MEDS: sodium chloride 0.9% 1,000 ML 75 ML IV ×3 (06:22→23:30)
--- NOTE | 2025-03-21 09:48 | W.PM.OPSUD ---
Surgery/Procedure H&P Update DATE OF PROCEDURE: March 21, 2025 DATE H&P PERFORMED: 03/20/25 H&P UPDATE INFORMATION: I have reviewed H&P completed within last 30 days, I have examined patient prior to procedure and No changes to prior documentation PLANNED PROCEDURE: Operation Date: 03/21/25 12:25 Proposed Procedures p Trochanteric Femoral Nail(Left) - Romeo Woo DO
--- NOTE | 2025-03-21 11:15 | PC.NURSE ---
Surgery at bedside to take patient to pre-op
--- NOTE | 2025-03-21 11:25 | ANES.PREANE2 ---
Pre-Anesthetic Assessment Height/Weight: Height 5 ft 3 in Weight 203 lb Temp Pulse Resp BP Pulse Ox O2 Del Method 97.7 F 91 17 189/89 94 Room Air 03/21/25 11:03 03/21/25 11:03 03/21/25 11:03 03/21/25 11:03 03/21/25 11:03 03/21/25 11:03 Preop Diagnosis: Hip fracture Operation Date: 03/21/25 12:25 Proposed Procedures p Trochanteric Femoral Nail(Left) - Romeo Woo, DO Was Beta Luna taken within 24 hours: N/A Was Clonidine taken within 24 hours: N/A Last intake: Intake Last Liquid Date 03/20/25 Last Liquid Time 17:30 Last Solid Date 03/20/25 Last Solid Time 17:30 Social No alcohol and No tobacco Exam alert, oriented x 3, clear to auscultation bilaterally and regular rate & rhythm Mild ejection flow murmur Airway Submandibular: within normal limits Cervical ROM: within normal limits Mallampati: Class II Dentition: full Anesthetic Plan ASA status: 3 Anesthesia: General Other: History of PONV NPO since yesterday evening History of hypertension on lisinopril. Preop BP 189/89 Denies any pulmonary issues Has sciatic pain down the left leg, ambulates with a cane Labs reviewed from today, hemoglobin 10.8 EKG sinus rhythm Plan for general anesthesia Medications/Allergies Home Medications ?Medication ?Instructions ?Recorded ?Confirmed ?Last Taken ?Type calcium carbonate (Calcium 600) 600 mg PO DAILY 03/20/25 03/20/25 03/19/25 History cholecalciferol (vitamin D3) 125 125 mcg PO DAILY 03/20/25 03/20/25 03/19/25 History mcg (5,000 unit) tablet (Vitamin D3) lisinopril 10 mg tablet 10 mg PO DAILY 03/20/25 03/20/25 03/19/25 History lisinopril 5 mg tablet 5 mg PO BID 03/20/25 03/20/25 03/19/25 History magnesium carb,citrate,oxide 300 mg PO DAILY 03/20/25 03/20/25 03/19/25 History oxcarbazepine 300 mg tablet 300 mg PO QID 03/20/25 03/20/25 03/20/25 04:00 History Allergies Allergy/AdvReac Type Severity Reaction Status Date / Time digoxin (From Lanoxin) Allergy Unknown Verified 03/20/25 05:20 Sulfa (Sulfonamide Allergy algy-rash Verified 03/20/25 05:20 Antibiotics) Current Medications Generic Name Dose Route Start Last Admin Trade Name Freq PRN Reason Stop Dose Admin Acetaminophen 650 mg 03/20/25 11:25 03/20/25 13:18 Acetaminophen 325 Mg Tablet PO 650 mg On Hold: 03/21/25 10:57 Q6H PRN Administration Comment: Order held by Process Mild/Mod Pain Or Temp >/= 101 Transfer Ceftriaxone Sodium 1,000 mg 03/20/25 16:30 03/20/25 17:17 Ceftriaxone 1,000 Mg Sdv IVP 1,000 mg On Hold: 03/21/25 10:57 Q24H AILYN Administration Comment: Order held by Process Protocol Transfer Enoxaparin Sodium 40 mg 03/20/25 11:30 03/20/25 13:17 Enoxaparin 40 Mg/0.4 Ml Syringe SUBCUT 40 mg On Hold: 03/21/25 10:57 Q24H AILYN Administration Comment: Order held by Process Transfer Hydromorphone HCl 0.5 mg 03/20/25 16:37 03/20/25 17:17 Hydromorphone 0.5 Mg/0.5 Ml Inj IVP 0.5 mg On Hold: 03/21/25 10:57 Q6H PRN Administration Comment: Order held by Process PAIN Transfer Sodium Chloride 1,000 mls @ 75 mls/hr 03/20/25 16:30 03/21/25 06:22 Sodium Chloride 0.9% IV 75 mls/hr On Hold: 03/21/25 10:57 .[id number] AILYN Administration Comment: Order held by Process Transfer Ketorolac Tromethamine 15 mg 03/20/25 18:17 03/21/25 08:20 Ketorolac 30 Mg/Ml Inj IVP 03/25/25 18:16 15 mg On Hold: 03/21/25 10:57 Q6H PRN Administration Comment: Order held by Process MODERATE PAIN Transfer Lisinopril 10 mg 03/21/25 09:00 03/21/25 10:30 Lisinopril 10 Mg Tablet PO Not Given On Hold: 03/21/25 10:57 DAILY AILYN Comment: Order held by Process Transfer Lisinopril 5 mg 03/20/25 22:00 03/21/25 10:30 Lisinopril 10 Mg Tablet PO Not Given On Hold: 03/21/25 10:57 BID@1000,2200 AILYN Comment: Order held by Process Transfer Ondansetron HCl 4 mg 03/20/25 16:30 03/21/25 00:26 Ondansetron 2 Mg/Ml Sdv 2 Ml IVP 4 mg On Hold: 03/21/25 10:57 Q8H AILYN Administration Comment: Order held by Process Transfer Oxcarbazepine 300 mg 03/20/25 16:00 03/21/25 10:34 Oxcarbazepine 300 Mg Tablet PO 300 mg On Hold: 03/21/25 10:57 QID@0400,1000,1600,2200 [facility] Administration Comment: Order held by Process Transfer Pantoprazole Sodium 40 mg 03/21/25 09:00 03/21/25 10:[address] 40 Mg Tablet PO Not Given On Hold: 03/21/25 10:57 DAILY AILYN Comment: Order held by Process Transfer [facility] Anesthesia Medical History Hypertension Trigeminal neuralgia Surgical History Hx of cholecystectomy Hx of appendectomy Family History Father Cancer Mother Heart disease Denies family history of Diabetes CAD (coronary artery disease) Clotting disorder Dementia Hyperlipidemia Psychiatric illness Chronic kidney disease (CKD) Suicide Anesthesia complication Bleeding disorder Family history of premature coronary artery disease Lung disease Hypertension Stroke Social History Smoking and tobacco/nicotine status: never used tobacco/nicotine Alcohol intake: never Substance/Drug Use: never Current occupational status: retired Data Anesthesia 03/21/25 04:20 03/21/25 04:20 Short CBC 03/20/25 03/21/25 Range/Units 05:58 04:20 WBC 10.57 6.49 (3.29-11.43) 10^3/uL Hgb 12.00 10.80 L (11.27-16.99) g/dL Hct 35.9 L 32.7 L (36-47) % MCV 85.9 85.4 (85-98) fl Plt Count 376 295 (157-399) 10^3/cmm Neut % (Auto) 72.8 64.7 % Neut # (Auto) 7.70 4.20 (1.8-7.7) 10^3/uL BMP 03/20/25 03/21/25 05:58 04:20 Sodium 132 L 130 L Potassium 3.9 4.3 Chloride 97 L 95 L Carbon Dioxide 26 26 BUN 14 11 Creatinine 0.5 0.4 L Glucose 136 H 98 Calcium 9.4 9.0 Liver Function 03/20/25 03/21/25 Range/Units 05:58 04:20 Total Bilirubin 0.2 0.3 (0.15-1.2) mg/dL AST 17 22 (0-32) U/L ALT 14 13 (0-33) U/L Alkaline Phosphatase 90 72 (35-105) U/L Albumin 4.1 3.5 (3.5-5.2) g/dL Urine 03/20/25 Range/Units 06:00 Urine Color Yellow (Yellow) Urine Appearance Turbid A (CLEAR) Urine pH 7.0 (5-7) Ur Specific [place] 1.020 (1.005-1.030) Urine Protein 2+ A (Negative) Urine Glucose (UA) Negative (Normal) Urine Ketones Negative (Negative) Urine Nitrate Positive A (Negative) Urine Bilirubin Negative (Negative) Ur Leukocyte Esterase 2+ A (Negative) Urine RBC 6-10 (0-2) /hpf Urine WBC 51-100 H (0-5) /hpf Coags 03/20/25 05:58 PT 12.40 INR 0.86 APTT 26.8 Microbiology 03/20/25 06:00 Urine Culture - Preliminary Urine,Clean Catch Gram Negative Rods
[2025-03-21] MEDS: sodium chloride 0.9% 1,000 ML 30 ML IV (11:46)
[2025-03-21] MEDS: fentaNYL 50 mcg/mL INJ 2mL IVP (11:49)
[2025-03-21] MEDS: ceFAZolin 2,000 mg SDV 2000 MG IVP ×2 (12:15→19:55)
--- NOTE | 2025-03-21 13:32 | PM.OP ---
Operative Report Date of procedure: March 21, 2025 Pre-op diagnosis: Left intertrochanteric hip fracture Post-op diagnosis: same Procedure done: Left intramedullary hip nail Surgeon: Romeo Woo DO Estimated blood loss (mL): 5 Procedure: Left intramedullary hip nail Patient brought to the operative suite after an G[place] was placed in the supine position on the patch 2. Eyes appear well-padded. Fracture was in good alignment with the fracture table. Patient was then prepped and draped normal sterile fashion. Skin incision made over the tip of the greater trochanter. Starting wire was inserted open it was inserted. The nail was then inserted. Next it was brought to placing the lag screw. This was done by placing a wire up from the lateral cortex into the center position of the femoral head. This was reamed and a size 95 screw was placed and the screw was compressed. The locking screw was placed proximally. And then a distal locking screw was placed distally. AP and lateral fluoroscopy showed that the fracture and hardware in good position. Wounds were irrigated and closed with Vicryl and abida. Sterile dressings were applied patient transferred to PACU in stable condition.
[2025-03-21] MEDS: metoclopramide 5 mg/mL SDV 2 mL 10 MG IVP (14:06)
[2025-03-21] MEDS: acetaminophen 1,000 MG/100 ML PIGGYBACK 400 MG IV ×2 (15:14→23:07)
[2025-03-21] MEDS: fentaNYL 25 mcg Patch 1 PATCH TRANSDERMA (15:36)
[2025-03-21] MEDS: scopolamine 1 mg PATCH 1 PATCH TRANSDERMA (15:36)
--- NOTE | 2025-03-21 16:04 | P.PN_ITS ---
Subjective 2 Subjective: Patient is status post surgical intervention this morning. Patient states that pain is not adequately controlled at this time. Vitals/I&O/Wt Last Vital Signs Temp 98.2 F 03/21/25 14:32 Pulse 84 03/21/25 14:32 Resp 18 03/21/25 14:32 BP 165/85 03/21/25 14:32 Pulse Ox 93 03/21/25 14:32 O2 Del Method Room Air 03/21/25 14:32 O2 Flow Rate 8 03/21/25 13:33 03/21/25 03/21/25 03/21/25 06:59 14:59 22:59 Intake Total 986.25 / 986.25 0 / 0 666.25 / 666.25 Output Total 250 / 250 Balance 986.25 / 186.25 -250 / -250 666.25 / 416.25 Weight last 48 hrs Weight 92.079 kg Physical Exam 2 Narrative: General: No acute distress, AO x3 HEENT: PERRLA, pupils bilaterally equal and reactive, pallors not present Chest: Normal vesicular breath sounds, no added sounds, equal good air entry bilaterally CVS: S1-S2 regular, no murmurs, no tachycardia, no gallops, no rubs Abdomen: Soft, nontender, no organomegaly, bowel sounds present Neuro: No focal deficits, no facial deformity, AO x3, power 5/5 in all limbs Urinary Catheter Management: Sheridan: Cath Placed During This Visit: yes Reason for Continuing Indwelling Catheter: Accurate Measurement of Urinary Output in Critically Ill Patients Urinary Catheter Date of Insertion: 03/20/25 Urinary Catheter Time of Insertion: 06:00 Data 03/21/25 04:20 03/21/25 04:20 Micro: Microbiology 03/20/25 06:00 Urine Culture - Preliminary Urine,Clean Catch Gram Negative Rods A&P Assessment and plan (1) Closed fracture of left hip: 69-year-old lady presenting with a mechanical fall, past history of sciatica, x- ray shows closed fracture of the left hip as noted above. Patient evaluated by orthopedics, plan for left hip nail tomorrow N.p.o. postmidnight In the interim pain management with IV hydrocodone, alternating with IV Toradol, p.o. hydrocodone APAP. Continue home dose of oxcarbazepine which patient takes for chronic pain. Continue antihypertensive regimen as per home dosing with lisinopril. Plan DVT prophylaxis: Lovenox 40 subcutaneously Full code March 21, 2025 Patient is status post or intervention today. States that pain is not adequately controlled. She has been avoiding taking any morphine,percocet oral or Dilaudid due to nausea. She states that previosuly she had a ?fentanyl patch during an episode of appendicitis and that worked well for her. Will try fentanyl patch 25 mcg p.o. every 72 hrs. Additionally add scopolamine patch for nausea control add IV Tylenol and continue IV Toradol as opiate sparing measures. PDMP PDMP Reviewed: Not Reviewed Attestations 2 Medical Necessity Statement*: pain control, post op care, Therapy assessments post OR Coding Level of Care Code Acute Code for Nura Fwd Diagnoses Closed fracture of left hip, initial encounter S72.002A Encounter type: initial encounter
[2025-03-21] MEDS: lisinopril 10 mg Tablet 5 MG PO (21:56)
[2025-03-22] MEDS: ketorolac 30 mg/mL INJ 15 MG IVP ×4 (02:57→21:04)
[2025-03-22] MEDS: OXcarbazepine 300 mg Tablet PO ×4 (04:13→22:01)
[2025-03-22] MEDS: ceFAZolin 2,000 mg SDV 2000 MG IVP ×2 (04:13→11:33)
[2025-03-22 04:15] VITALS: BP 122/79; PULSE 113; RESP 18; TEMP 36.8; O2SAT 94
[2025-03-22 04:16] LABS: Basophils % 0.1 %; Eosinophils % 0.3 %; Hematocrit 29.1 % (36-47); Lymphocytes # 1.4 10^3/uL (0.8-4.8); Lymphocytes % 16.3 %; Mean Corpuscular HGB Conc 33.3 g/dL (30-55); Mean Corpuscular Hemoglobin 28.4 pg (27-33); Mean Corpuscular Volume 85.1 fl (85-98); Mean Platelet Volume 8.8 fL (7.4-10.4); Monocytes # 0.9 10^3/uL (0.2-0.9); Monocytes % 10.5 %; Neutrophils # 6.32 10^3/uL (1.8-7.7); Neutrophils % 72.5 %; Nucleated Red Blood Cells % 0 %; Platelet Count 240 10^3/cmm (157-399); Red Blood Count 3.42 10^6/uL (3.85-5.65); Red Cell Distribution Width 13.2 % (12.1-15.1); White Blood Count 8.73 10^3/uL (3.29-11.43)
[2025-03-22 04:38] LABS: Alanine Aminotransferase 11 U/L (0-33); Albumin Level 3.2 g/dL (3.5-5.2); Alkaline Phosphatase 61 U/L (35-105); Aspartate Amino Transferase 19 U/L (0-32); Blood Urea Nitrogen 10 mg/dL (8-23); Calcium 8.3 mg/dL (8.5-10.5); Carbon Dioxide 24 mmol/L (22-29); Chloride 99 mmol/L (98-107); Creatinine Clr Calc Pharmacy 70.5236; Globulin 2.1 g/dL (1.3-4.6); Glomerular Filtration Rate 157.8 mL/min (90-130); Glucose 92 mg/dL (65-115); Osmolality Calculated 271 mOsm/kg (285-295); Sodium 131 mmol/L (136-145); Total Bilirubin 0.2 mg/dL (0.15-1.2); Total Protein 5.3 g/dL (6.6-8.7)
[2025-03-22] MEDS: acetaminophen 1,000 MG/100 ML PIGGYBACK 400 MG IV (06:59)
[2025-03-22 08:00] VITALS: BP 145/68; PULSE 83; RESP 17; TEMP 36.7; O2SAT 97
[2025-03-22] MEDS: lisinopril 10 mg Tablet PO (08:20)
[2025-03-22] MEDS: pantoprazole DR 40 mg Tablet PO (08:20)
[2025-03-22] MEDS: lisinopril 10 mg Tablet 5 MG PO (08:20)
--- NOTE | 2025-03-22 10:31 | P.PN_ITS ---
Subjective 2 Subjective: Patient is doing well sitting up in chair she is able to get from the bed to chair. Vitals/I&O/Wt Last Vital Signs Temp 98.1 F 03/22/25 08:00 Pulse 83 03/22/25 08:00 Resp 17 03/22/25 08:00 BP 145/68 03/22/25 08:00 Pulse Ox 97 03/22/25 08:00 O2 Del Method Room Air 03/22/25 08:00 O2 Flow Rate 8 03/21/25 13:33 03/21/25 03/22/25 03/22/25 22:59 06:59 14:59 Intake Total 766.25 / 766.25 718.75 / 1485.00 Output Total 500 / 750 475 / 1225 250 / 250 Balance 266. / 16.25 243.75 / 260.00 -250 / -250 Physical Exam 2 Narrative: Dressing clean dry intact Urinary Catheter Management: Sheridan: Cath Placed During This Visit: yes Reason for Continuing Indwelling Catheter: Required Immobilization for Trauma or Surgery or Anesthesia Urinary Catheter Date of Insertion: 03/20/25 Urinary Catheter Time of Insertion: 06:00 Data 03/22/25 04:10 03/22/25 04:10 Micro: Microbiology 03/20/25 06:00 Urine Culture - Preliminary Urine,Clean Catch Gram Negative Rods A&P Assessment and plan (1) Closed fracture of left hip: Status post left hip nail Up with therapy On Lovenox for DVT prophylaxis If she is getting around okay to discharge on aspirin PDMP PDMP Reviewed: Not Reviewed Attestations 2 Medical Necessity Statement*: Per primary service Coding Level of Care Code Acute Code for Chg Fwd Diagnoses Closed fracture of left hip, initial encounter S72.002A Encounter type: initial encounter
[2025-03-22] MEDS: enoxaparin 40 mg/0.4 mL Syringe SUBCUT (11:33)
--- NOTE | 2025-03-22 13:02 | P.PN_ITS ---
Subjective 2 Subjective: Patient was seen this morning, she tells me that the fentanyl patch is helping with her left hip pain, postoperative pain however she continues to have episodes of muscle spasms hampering her PT OT, she is on Trileptal 300 mg p.o. 4 times daily for which she uses for trigeminal neuralgia, denies any constipation, no fevers, no chills Vitals/I&O/Wt Last Vital Signs Temp 98.1 F 03/22/25 08:00 Pulse 83 03/22/25 08:00 Resp 17 03/22/25 08:00 BP 145/68 03/22/25 08:00 Pulse Ox 97 03/22/25 08:00 O2 Del Method Room Air 03/22/25 08:00 O2 Flow Rate 8 03/21/25 13:33 03/21/25 03/22/25 03/22/25 22:59 06:59 14:59 Intake Total 766.25 / 766.25 718.75 / 1485.00 Output Total 500 / 750 475 / 1225 250 / 250 Balance 266.25 / 16.25 243.75 / 260.00 -250 / -250 Physical Exam 2 Const: COMMON NORMALS: no acute distress and patient oriented x3 Resp: COMMON NORMALS: normal respiratory effort, No retractions, No use of accessory muscles and clear to auscultation bilaterally AUSCULTATION: clear to auscultation bilaterally Cardio: COMMON NORMALS: regular rate, regular rhythm, S1 normal heart sound present and S2 normal heart sound present RATE: regular rate RHYTHM: r egular rhythm HEART SOUNDS: S1 normal heart sound present and S2 normal heart sound present GI: COMMON NORMALS: Normal to inspection, nondistended, normoactive bowel sounds present and non-tender Extremity: COMMON NORMALS: no pedal edema Neuro: COMMON NORMALS: patient oriented x3 Psych: COMMON NORMALS: mental status grossly normal Urinary Catheter Management: Sheridan: Cath Placed During This Visit: yes, but has since been removed by the nurse Reason for Continuing Indwelling Catheter: Decision to DC Catheter Urinary Catheter Date of Insertion: 03/20/25 Urinary Catheter Time of Insertion: 06:00 Date Urinary Catheter Removed: 03/22/25 Time Urinary Catheter Discontinued: 10:15 Data 03/22/25 04:10 03/22/25 04:10 Micro: Microbiology 03/20/25 06:00 Urine Culture - Final Urine,Clean Catch Citrobacter amalonaticus A&P Assessment and plan (1) Closed fracture of left hip: 69-year-old lady presenting with a mechanical fall, past history of sciatica, x- ray shows closed fracture of the left hip as noted above. Status post surgical intervention Intractable postoperative pain - Currently with fentanyl patch 25 mcg - Has left hip spasms Plan - Continue to monitor on fentanyl patch - Add Flexeril as needed for pain - Continue PT OT Plan DVT prophylaxis: Lovenox 40 subcutaneously Full code PDMP PDMP Reviewed: Not Reviewed Attestations 2 Medical Necessity Statement*: Patient requires hospitalization for intractable postoperative pain Diagnoses Closed fracture of left hip, initial encounter S72.002A Encounter type: initial encounter
[2025-03-22 13:35] VITALS: BP 127/58; PULSE 97; RESP 17; TEMP 36.3; O2SAT 96
[2025-03-22] MEDS: cyclobenzaprine 10 mg Tablet 5 MG PO ×2 (13:39→21:04)
[2025-03-22 16:55] VITALS: BP 99/67; PULSE 97; RESP 16; TEMP 36.7; O2SAT 96
[2025-03-22] MEDS: acetaminophen 325 mg Tablet 650 MG PO (18:36)
[2025-03-22 21:00] VITALS: BP 121/70; PULSE 90; RESP 18; TEMP 36.5; O2SAT 97
[2025-03-22 22:00] VITALS: BP 128/70
[2025-03-23 01:00] VITALS: BP 125/54; PULSE 84; RESP 18; TEMP 36.7; O2SAT 97
[2025-03-23] MEDS: ketorolac 30 mg/mL INJ 15 MG IVP ×2 (04:03→14:35)
[2025-03-23] MEDS: OXcarbazepine 300 mg Tablet PO ×2 (04:03→10:18)
[2025-03-23 06:00] VITALS: BP 106/67; PULSE 90; RESP 18; TEMP 36.5; O2SAT 97
[2025-03-23] MEDS: cyclobenzaprine 10 mg Tablet 5 MG PO (06:00)
[2025-03-23 06:07] LABS: Basophils % 0.4 %; Eosinophils # 0.1 10^3/uL (0.0-0.8); Eosinophils % 1.7 %; Hematocrit 28.2 % (36-47); Lymphocytes % 28.4 %; Mean Corpuscular Hemoglobin 28.1 pg (27-33); Mean Corpuscular Volume 85.2 fl (85-98); Mean Platelet Volume 8.7 fL (7.4-10.4); Monocytes # 0.8 10^3/uL (0.2-0.9); Monocytes % 11.5 %; Neutrophils # 4.08 10^3/uL (1.8-7.7); Neutrophils % 57.7 %; Nucleated Red Blood Cells % 0 %; Platelet Count 239 10^3/cmm (157-399); Red Blood Count 3.31 10^6/uL (3.85-5.65); Red Cell Distribution Width 13.3 % (12.1-15.1); White Blood Count 7.07 10^3/uL (3.29-11.43)
[2025-03-23 06:24] LABS: Alanine Aminotransferase 7 U/L (0-33); Albumin Level 3.2 g/dL (3.5-5.2); Alkaline Phosphatase 63 U/L (35-105); Aspartate Amino Transferase 17 U/L (0-32); Blood Urea Nitrogen 14 mg/dL (8-23); Calcium 8.6 mg/dL (8.5-10.5); Carbon Dioxide 25 mmol/L (22-29); Chloride 99 mmol/L (98-107); Creatinine Clr Calc Pharmacy 70.5236; Globulin 2.4 g/dL (1.3-4.6); Glomerular Filtration Rate 157.8 mL/min (90-130); Glucose 99 mg/dL (65-115); Osmolality Calculated 273 mOsm/kg (285-295); Sodium 131 mmol/L (136-145); Total Bilirubin 0.2 mg/dL (0.15-1.2); Total Protein 5.6 g/dL (6.6-8.7)
[2025-03-23 10:15] VITALS: BP 145/77; PULSE 99; RESP 16; TEMP 36.8; O2SAT 97
[2025-03-23] MEDS: lisinopril 10 mg Tablet PO (10:17)
[2025-03-23] MEDS: acetaminophen 325 mg Tablet 650 MG PO (10:17)
[2025-03-23] MEDS: lisinopril 10 mg Tablet 5 MG PO (10:17)
--- NOTE | 2025-03-23 11:02 | P.DS_ITS ---
Discharge Providers Date of Admission: 03/20/25 05:51 Date of Discharge: March 23, 2025 Attending Provider at Admission: Bee Hodgson MD Attending Provider at Discharge: Rene Miranda MD Primary Care Provider: Lucinda Sauceda MD Diagnoses at Discharge Discharge Diagnosis (1) Closed fracture of left hip: Status: Acute Qualifiers: Encounter type: initial encounter Qualified Code(s): S72.002A - Fracture of unspecified part of neck of left femur, initial encounter for closed fracture Reason for Visit Reason for Visit: FALL, LEFT LEG AND LEFT HIP PAIN Hospital Course Hospital Course Wendy Sheldon is a 69 year old female with a past medical history of sciatica who presented to the hospital with chief complaints of having taken a fall at home. Patient presented to [facility] for left hip fracture, status post left intramedullary hip nail, postoperative course was complicated by intractable postoperative pain, requiring 25 mcg fentanyl patch. Overall patient's clinical condition improved, will be discharged home, discharged on aspirin 81 mg for DVT prophylaxis. In terms of pain control, her 25 mcg fentanyl patch is a 72-hour patch and will wear off by tomorrow afternoon. Patient was advised to remove fentanyl patch in the morning, and in the afternoon she can transition to p.o. hydrocodone 5-325 every 6 hours as needed for pain. Patient was advised do not drive or operate heavy machinery or drink while taking narcotics. Patient was advised there is a risk of overlap with her fentanyl patch and hydrocodone, if she does develop any symptoms of narcotic overdose, she should use Narcan as prescribed, and call 911. For patient's urinary tract infection, she was discharged on p.o. antibiotic therapy. Physical Exam Const: COMMON NORMALS: no acute distress and patient oriented x3 Resp: COMMON NORMALS: normal respiratory effort, No retractions, No use of accessory muscles and clear to auscultation bilaterally AUSCULTATION: clear to auscultation bilaterally Cardio: COMMON NORMALS: regular rate, regular rhythm, S1 normal heart sound present and S2 normal heart sound present RATE: regular rate RHYTHM: regular rhythm HEART SOUNDS: S1 normal heart sound present and S2 normal heart sound present GI: COMMON NORMALS: Normal to inspection, nondistended, normoactive bowel sounds present and non-tender Extremity: COMMON NORMALS: no pedal edema Neuro: COMMON NORMALS: patient oriented x3 Psych: COMMON NORMALS: mental status grossly normal Urinary Catheter Management: Sheridan: Cath Placed During This Visit: yes, but has since been removed by the nurse Reason for Continuing Indwelling Catheter: Decision to DC Catheter Urinary Catheter Date of Insertion: 03/20/25 Urinary Catheter Time of Insertion: 06:00 Date Urinary Catheter Removed: 03/22/25 Time Urinary Catheter Discontinued: 10:15 Discharge Data Studies Completed and Pending Completed Studies During Hospitalization Category Date Time Status XR chest 1V portable [id number] Stat Exams 03/20/25 05:29 Completed XR femur LT min 2V* [id number] Stat Exams 03/20/25 05:28 Completed Pending at discharge Category Date Time Status Complete Blood Count w/Auto AM LABS Lab 03/24/25 04:00 Ordered Complete Blood Count w/Auto AM LABS Lab 03/25/25 04:00 Ordered Comprehensive Metabolic Panel AM LABS Lab 03/24/25 04:00 Ordered Comprehensive Metabolic Panel AM LABS Lab 03/25/25 04:00 Ordered Radiology Impressions Femur X-Ray 03/20/25 05:28 IMPRESSION: Nondisplaced fracture of the proximal femur. Chest X-Ray 03/20/25 05:29 IMPRESSION: No acute findings. Laboratory Results WBC 7.07 10^3/uL (3.29-11.43) 03/23/25 05:57 RBC 3.31 10^6/uL (3.85-5.65) L 03/23/25 05:57 Hgb 9.30 g/dL (11.27-16.99) L 03/23/25 05:57 Hct 28.2 % (36-47) L 03/23/25 05:57 MCV 85.2 fl (85-98) 03/23/25 05:57 MCH 28.1 pg (27-33) 03/23/25 05:57 MCHC 33.0 g/dL (30-55) 03/23/25 05:57 RDW 13.3 % (12.1-15.1) 03/23/25 05:57 Plt Count 239 10^3/cmm (157-399) 03/23/25 05:57 MPV 8.7 fL (7.4-10.4) 03/23/25 05:57 Neut % (Auto) 57.7 % 03/23/25 05:57 Lymph % (Auto) 28.4 % 03/23/25 05:57 Meade % (Auto) 11.5 % 03/23/25 05:57 Eos % (Auto) 1.7 % 03/23/25 05:57 Baso % (Auto) 0.4 % 03/23/25 05:57 Neut # (Auto) 4.08 10^3/uL (1.8-7.7) 03/23/25 05:57 Lymph # (Auto) 2.0 10^3/uL (0.8-4.8) 03/23/25 05:57 Meade # (Auto) 0.8 10^3/uL (0.2-0.9) 03/23/25 05:57 Eos # (Auto) 0.1 10^3/uL (0.0-0.8) 03/23/25 05:57 Baso # (Auto) 0.0 10^3/uL (0.0-0.1) 03/23/25 05:57 Nucleated RBC % (auto) 0 % 03/23/25 05:57 Nucleated RBCs # 0.0 /100WBC 03/23/25 05:57 PT 12.40 SECONDS (12.1-14.9) 03/20/25 05:58 INR 0.86 (0.8-1.2) 03/20/25 05:58 APTT 26.8 SECONDS (23.9-36.7) 03/20/25 05:58 Sodium 131 mmol/L (136-145) L 03/23/25 05:57 Potassium 4.0 mmol/L (3.5-5.1) 03/23/25 05:57 Chloride 99 mmol/L (98-107) 03/23/25 05:57 Carbon Dioxide 25 mmol/L (22-29) 03/23/25 05:57 Anion Gap 11.0 (5-19) 03/23/25 05:57 BUN 14 mg/dL (8-23) 03/23/25 05:57 Creatinine 0.4 mg/dL (0.5-0.9) L 03/23/25 05:57 GFR Calculation 157.8 mL/min (90-130) H 03/23/25 05:57 Glucose 99 mg/dL (65-115) 03/23/25 05:57 Calculated Osmolality 273 mOsm/kg (285-295) L 03/23/25 05:57 Calcium 8.6 mg/dL (8.5-10.5) 03/23/25 05:57 Total Bilirubin 0.2 mg/dL (0.15-1.2) 03/23/25 05:57 AST 17 U/L (0-32) 03/23/25 05:57 ALT 7 U/L (0-33) 03/23/25 05:57 Alkaline Phosphatase 63 U/L (35-105) 03/23/25 05:57 Total Protein 5.6 g/dL (6.6-8.7) L 03/23/25 05:57 Albumin 3.2 g/dL (3.5-5.2) L 03/23/25 05:57 Globulin 2.4 g/dL (1.3-4.6) 03/23/25 05:57 Urine Color Yellow (Yellow) 03/20/25 06:00 Urine Appearance Turbid (CLEAR) A 03/20/25 06:00 Urine pH 7.0 (5-7) 03/20/25 06:00 Ur Specific [place] 1.020 (1.005-1.030) 03/20/25 06:00 Urine Protein 2+ (Negative) A 03/20/25 06:00 Urine Glucose (UA) Negative (Normal) 03/20/25 06:00 Urine Ketones Negative (Negative) 03/20/25 06:00 Urine Blood Trace (Negative) A 03/20/25 06:00 Urine Nitrate Positive (Negative) A 03/20/25 06:00 Urine Bilirubin Negative (Negative) 03/20/25 06:00 Urine Urobilinogen 1.0 mg/dL (Negative) 03/20/25 06:00 Ur Leukocyte Esterase 2+ (Negative) A 03/20/25 06:00 Urine RBC 6-10 /hpf (0-2) 03/20/25 06:00 Urine WBC 51-100 /hpf (0-5) H 03/20/25 06:00 Ur Squamous Epith Cells 0-5 /hpf (0-5) 03/20/25 06:00 Amorphous Sediment 2+ /hpf 03/20/25 06:00 Urine Bacteria 4+ /hpf (NONE) H 03/20/25 06:00 Hyaline Casts 7.01 /lpf 03/20/25 06:00 Vitals Last Vital Signs Temp 97.7 F 03/23/25 06:00 Pulse 90 03/23/25 06:00 Resp 18 03/23/25 06:00 BP 106/67 03/23/25 06:00 Pulse Ox 97 03/23/25 06:00 O2 Del Method Room Air 03/23/25 06:00 O2 Flow Rate 8 03/21/25 13:33 Discharge Plan Discharge Patient Disposition: Home Condition: Stable Prescriptions: New hydrocodone-acetaminophen 5-325 mg tablet 1 tab PO Q6H PRN (Reason: pain) 5 Days Qty: 30 0RF Rx Instructions: please start 03/24/2025 aspirin 81 mg tablet 81 mg PO DAILY 42 Days Qty: 42 0RF ciprofloxacin HCl [Cipro] 500 mg tablet 500 mg PO BID 5 Days Qty: 10 0RF naloxone [Rextovy] 4 mg/actuation spray,non-aerosol 4 mg intranasal Q2M Qty: 2 0RF Rx Instructions: spray 1 dose into ONE nostril; alternate nostrils w each dose until help arrives Continued lisinopril 10 mg tablet 10 mg PO DAILY oxcarbazepine 300 mg tablet 300 mg PO QID lisinopril 5 mg tablet 5 mg PO BID calcium carbonate [Calcium 600] 600 mg calcium (1,500 mg) Tablet 600 mg PO DAILY cholecalciferol (vitamin D3) [Vitamin D3] 125 mcg (5,000 unit) Tablet 125 mcg PO DAILY magnesium carb,citrate,oxide 300 mg magnesium Tablet 300 mg PO DAILY Discharge Orders: Discharge Order (Routine); Ordered 03/23/25 Ordered By: Rene Miranda Referrals: Lucinda Sauceda MD [Primary Care Provider, [facility]] Discharge Diet: Cardiac Discharge Activity: Resume usual activity Patient Instructions: Acute Wound Care (DC), Opioid Safety, Post Anesthesia Care Activity Restrictions/Additional Instructions: - Your fentanyl patch will wear off tomorrow morning, please remove patch tomorrow morning 03/24/2025 - After that (once fentanyl patch has been removed), preferably in afternoon, you may use hydrocodone 5-325 sparingly for pain, do not drive or operate heavy machinery or drink while taking medication - You have a risk of opiate overdose, if any signs or symptoms of opiate overdose please use Narcan as prescribed - Please take antibiotics for UTI - Please use aspirin 81 mg for DVT prophylaxis - If you develop any calf pain or bloody cough or sudden onset shortness of breath or chest pain please go to the emergency room You are being discharged from the hospital today during which time you have been under the care of Dr. Woo. You had a left hip fracture. You were treated for this injury with left hip nail. You may resume you normal diet (including any special diets as directed by your primary doctor) as well as your home medications. You should follow up with you primary doctor if you have any questions regarding medication you took prior to your stay in the hospital. You may take your pain medication as prescribed. After the first few days, take your pain medication as needed. Do not drive or drink alcohol while taking your pain medication. Your injury may increase your risk of developing a blood clot,or DVT, in your arm or leg. This could potentially dislodge and travel to your lungs and become a life threatening condition called apulmonary embolus,or PE. You have been prescribed aspirin to be taken to prevent this. Frequent movement of the legs will also help prevent this from occurring. If you develop any new or worsening cough, chestpain, bloody sputum or shortness of breath, call 911 or go to the EmergencyRoom. Always keep your surgical incision/dressing clean and dry. If you experience increasing pain at your incision site, redness, swelling, increasing discharge, foul odors, or fevers (greater than 100.4), night sweats or chills you should call the office at the above number. If you feel this is an emergency you should be evaluated in the Emergency Department of a nearby hospital. Orthopedic Patient Instructions Summary: Weight Bearing: Weight-bear as tolerated Activity: As tolerated. Diet: Regular. Wound Care: Keep dressing clean and dry. Anticoagulation: Aspirin Pain Medication: Take only as needed. Ice, rest and elevation will be of great benefit. Please plan to follow-up long Woo in 2 weeks. You will need to call the clinic [phone] to schedule this visit. Thank you far allowing me to participate in your care. Do not hesitate to call the office with any questions or concerns. Discharge Attestations Time Spent in Discharge Care*: greater than 30 min Quality Metrics Clinical Quality Measures [ No reported AMI, CVA or VTE this stay] Coding Level of Care Code 47629 Total time (in minutes) for Discharge: 45 Diagnoses Closed fracture of left hip, initial encounter S72.002A Encounter type: initial encounter
[2025-03-23] MEDS: enoxaparin 40 mg/0.4 mL Syringe SUBCUT (14:32)
[2025-03-23] MEDS: ciprofloxacin 500 mg Tablet PO (14:34)
[2025-03-23 15:00] VITALS: BP 136/66; PULSE 107; RESP 16; TEMP 36.7; O2SAT 97
== END 2025-03-23 15:10 | disposition home health service (06) | DRG 482 ==
LOC: ER 06:03 → ER IP 06:14 → OBGYN 11:22
PROVIDERS: Orthopaedic Surgery; Student in an Organized Health Care Education/Training Program; Admitting Provider Internal Medicine; Emergency Provider Emergency Medicine; PCP Family Medicine; Visit Provider Family Medicine
PROC: 0QS706Z Reposition Left Upper Femur with Intramedullary Internal Fixation Device, Open Approach (ICD-10-PCS; CPT 27245; principal; 2025-03-21 12:05)
DX: S72.142A Displaced intertrochanteric fracture of left femur, initial encounter for closed fracture (principal); W18.39XA Other fall on same level, initial encounter; G89.18 Other acute postprocedural pain; I10 Essential (primary) hypertension; G50.0 Trigeminal neuralgia
CPT/HCPCS: 36415; 51702; 71045; 73552; 76000; 80053; 81001; 85025; 85610; 85730; 87077; 87086; 87186; 93005; 96372; 96374; 96375; 96376; 97116; 97161; 97167; 97530; 97535; 99285; A4216; C1713; J0131; J0690; J0696; J1100; J1171; J1650; J1885; J2270; J2405; J2704; J2765; J3010; J7030; J9999

== ENCOUNTER → 2025-04-05 15:23 | Outpatient (BNVA) | payer MEDICARE, SELFPAY | PROVIDERS: PCP Family Medicine; Visit Provider Orthopaedic Surgery | DX: M25.552 Pain in left hip (principal) | CPT/HCPCS: 73502; 99024 ==

== ENCOUNTER → 2025-05-03 14:39 | Outpatient (BNVA) | payer MEDICARE, SELFPAY | PROVIDERS: PCP Family Medicine; Visit Provider Orthopaedic Surgery | DX: Z98.890 Other specified postprocedural states (principal) | CPT/HCPCS: 73502; 99024 ==

== ENCOUNTER → 2025-06-07 07:42 | Outpatient (BNVA) | payer MEDICARE, SELFPAY | PROVIDERS: PCP Family Medicine; Visit Provider Orthopaedic Surgery | DX: S72.002D Fracture of unspecified part of neck of left femur, subsequent encounter for closed fracture with routine healing (principal); X58.XXXD Exposure to other specified factors, subsequent encounter | CPT/HCPCS: 73502; 99024 ==

== ENCOUNTER → 2025-06-27 08:15 | Outpatient (BNVA) | payer MEDICARE, SELFPAY | PROVIDERS: PCP Family Medicine; Visit Provider Specialist | DX: M17.11 Unilateral primary osteoarthritis, right knee (principal); S72.002D Fracture of unspecified part of neck of left femur, subsequent encounter for closed fracture with routine healing; X58.XXXD Exposure to other specified factors, subsequent encounter | CPT/HCPCS: 73560; 73565; 99205 ==

== ENCOUNTER → 2025-08-26 09:06 | Outpatient (BNVA) | payer MEDICARE, SELFPAY | PROVIDERS: PCP Family Medicine; Visit Provider Family Medicine | DX: Z01.818 Encounter for other preprocedural examination (principal); M17.12 Unilateral primary osteoarthritis, left knee; M25.562 Pain in left knee | CPT/HCPCS: 80053; 85025 ==

== ENCOUNTER → 2025-08-29 10:15 | Outpatient (BNVA) | payer MEDICARE, SELFPAY | PROVIDERS: PCP Family Medicine; Visit Provider Specialist | DX: Z01.818 Encounter for other preprocedural examination (principal); M17.11 Unilateral primary osteoarthritis, right knee; S72.002D Fracture of unspecified part of neck of left femur, subsequent encounter for closed fracture with routine healing; X58.XXXD Exposure to other specified factors, subsequent encounter | CPT/HCPCS: 36415; 80053; 81001; 85025; 87086; 99214 ==

== ENCOUNTER 2025-09-09 07:08 | Outpatient (CLI) | payer MEDICARE, SELFPAY ==
--- NOTE | 2025-09-09 07:15 | CT_ITS ---
WS: [id number] CT RIGHT knee, noncontrast HISTORY: M17.11 - Unilateral primary osteoarthritis, right knee TECHNIQUE: Protocol for [facility] total knee replacement has been obtained. This includes axial imaging through the RIGHT hip, RIGHT knee and RIGHT ankle. DLP: 863.33 mGy.cm COMPARISON: Radiograph 06/27/2025 Hips: Prior ORIF LEFT hip. Advanced degenerative changes at the LEFT hip with bone upon bone and subchondral cyst. Moderate degenerative changes involving the RIGHT hip joint. Subchondral cyst at the acetabulum. No fractures. Marked valgus deformity RIGHT knee. Severe tricompartment arthritis. There is bone upon bone in the lateral compartment. Mild lateral subluxation of the patella. Large marginal osteophytes. Small suprapatellar joint effusion. RIGHT ankle: Degenerative arthritic changes at each ankle. CT/CT knee RT [facility] [id number] IMPRESSION: CT imaging provided for [facility] robotic total knee replacement.
== END 2025-09-09 07:09 | disposition home or self-care (01) ==
LOC: RAD 07:12
PROVIDERS: PCP Family Medicine; Visit Provider Nurse Practitioner
DX: M17.11 Unilateral primary osteoarthritis, right knee (principal); M16.0 Bilateral primary osteoarthritis of hip; Z96.651 Presence of right artificial knee joint; M85.452 Solitary bone cyst, left pelvis; M24.851 Other specific joint derangements of right hip, not elsewhere classified; M24.151 Other articular cartilage disorders, right hip; S83.011A Lateral subluxation of right patella, initial encounter; X58.XXXA Exposure to other specified factors, initial encounter; M25.761 Osteophyte, right knee; M25.461 Effusion, right knee; M19.071 Primary osteoarthritis, right ankle and foot; M19.072 Primary osteoarthritis, left ankle and foot
CPT/HCPCS: 73700

== ENCOUNTER 2025-09-15 13:49 | Observation (INO) | payer MEDICARE, SELFPAY ==
[2025-09-15] VITALS (22 sets, daily range): BP systolic 94–174; BP diastolic 50–99; PULSE 85–112; RESP 12–23; TEMP 36.4–36.8; O2SAT 96–98; BMI 33.8
[2025-09-15] MEDS: acetaminophen 1,000 MG/100 ML PIGGYBACK 400 MG IV ×2 (09:50→17:15)
--- NOTE | 2025-09-15 10:14 | W.PM.OPSUD ---
Surgery/Procedure H&P Update DATE OF PROCEDURE: September 15, 2025 DATE H&P PERFORMED: 08/29/25 H&P UPDATE INFORMATION: I have reviewed H&P completed within last 30 days, I have examined patient prior to procedure, No changes to prior documentation, H&P is in [facility] EMR on date indicated and Risks and benefits of the procedure reviewed PLANNED PROCEDURE: Operation Date: 09/15/25 10:45 Proposed Procedures p Dejuan Robot Total Knee Arthroplasty(Right) - Lakshmi Reyna MD Related Problem List Diagnoses 1. Primary osteoarthritis of right knee:
--- NOTE | 2025-09-15 10:30 | ANES.PREANE2 ---
Pre-Anesthetic Assessment Height/Weight: Height 1.6 m Weight 83.915 kg Temp Pulse Resp BP Pulse Ox O2 Del Method 98 F 85 18 169/79 98 Room Air 09/15/25 09:33 09/15/25 09:33 09/15/25 09:33 09/15/25 09:33 09/15/25 09:33 09/15/25 09:33 Operation Date: 09/15/25 10:45 Proposed Procedures p Dejuan Robot Total Knee Arthroplasty(Right) - Lakshmi Reyna MD Familial anesthetic complications: severe ponv Was Beta Luna taken within 24 hours: N/A Was Clonidine taken within 24 hours: N/A Last intake: Intake Last Liquid Date 09/14/25 Last Liquid Time 23:50 Last Solid Date 09/14/25 Last Solid Time 21:00 Social No alcohol and No tobacco Exam alert, oriented x 3, clear to auscultation bilaterally and regular rate & rhythm Airway Mallampati: Class II Dentition: full CV/HEM Hypertension Neuropsych trigeminal neuralgia Anesthetic Plan ASA status: 2 Anesthesia: Regional (specify below) Other: spinal + adductor Risk of > 500 ml blood loss (7ml/kg in children): No Medications/Allergies Home Medications ?Medication ?Instructions ?Recorded ?Confirmed ?Last Taken ?Type calcium carbonate (Calcium 600) 600 mg PO DAILY 03/20/25 09/15/25 09/14/25 History cholecalciferol (vitamin D3) 125 125 mcg PO DAILY 03/20/25 09/15/25 09/14/25 History mcg (5,000 unit) tablet (Vitamin D3) lisinopril 10 mg tablet 10 mg PO DAILY 03/20/25 09/15/25 09/14/25 History lisinopril 5 mg tablet 5 mg PO BID 03/20/25 09/15/25 09/14/25 History magnesium carb,citrate,oxide 300 mg PO DAILY 03/20/25 09/15/25 09/14/25 History oxcarbazepine 300 mg tablet 300 mg PO QID 03/20/25 09/15/25 09/15/25 History cyclobenzaprine 10 mg tablet 10 mg PO TID 30 days #90 tabs 04/05/25 09/15/25 Unknown Rx Allergies Allergy/AdvReac Type Severity Reaction Status Date / Time digoxin (From Lanoxin) Allergy Unknown Verified 09/12/25 10:25 Sulfa (Sulfonamide Allergy algy-rash Verified 09/12/25 10:25 Antibiotics) Current Medications Generic Name Dose Route Start Last Admin Trade Name Graham PRN Reason Stop Dose Admin Sodium Chloride 1,000 mls @ 30 mls/hr 09/15/25 09:30 09/15/25 09:46 Sodium Chloride 0.9% IV 09/16/25 09:29 30 mls/hr .Q24H AILYN Administration PFSH Anesthesia Medical History (Updated 09/15/25 @ 10:17 by Lakshmi Reyna MD) Hypertension Trigeminal neuralgia Surgical History Hx of cholecystectomy Hx of appendectomy Family History Father Cancer Mother Heart disease Denies family history of Diabetes CAD (coronary artery disease) Clotting disorder Dementia Hyperlipidemia Psychiatric illness Chronic kidney disease (CKD) Suicide Anesthesia complication Bleeding disorder Family history of premature coronary artery disease Lung disease Hypertension Stroke Social History Smoking and tobacco/nicotine status: never used tobacco/nicotine Alcohol intake: never Substance/Drug Use: never Current occupational status: retired Anesthesia Procedures Nerve Block Nerve Block 1: Main Anesthesia: spinal anesthesia block Time Out Performed: Yes Consent: requested by attending/covering physician, from patient, from other, risks and benefits reviewed and patient agrees to proceed Nerve block location: adductor canal (R) Anesthesia monitors applied: pulse oximetry, EKG, BP cuff and oxygen Nerve block position: supine Anesthetic Used: ropivicaine 0.5% (30 ml) and with decadron (4 mg) Ultrasound used to: recognize landmarks and visualize and ID femerol nerve Nerve Stimulator Used?: No Interscalene/Femoral BLK: 4 stimuplex 21 g needle used for position and inplane approach, visualize local anesthetic spread and no vascular puncture identified Injection: neg aspiration of heme Patient Tolerated Procedure: well Complications: none
[2025-09-15] MEDS: ceFAZolin 2,000 mg SDV 2000 MG IVP ×2 (11:03→21:13)
[2025-09-15] MEDS: tranexamic acid 1,000 mg/10mL SDV 1000 MG IV (11:30)
[2025-09-15] MEDS: ceFAZolin 1,000 mg SDV 2000 MG IRRIGATION (12:15)
--- NOTE | 2025-09-15 14:04 | PM.OP ---
Operative Report Date of procedure: September 15, 2025 Pre-op diagnosis: Severe degenerative osteoarthritis right knee with severe valgus deformity and flexion contracture Post-op diagnosis: Severe degenerative osteoarthritis right knee with severe valgus deformity and flexion contracture Post-op findings: Significant valgus deformity. Large fatty prominence medially at the level of the knee. Severe degenerative osteoarthritic change. Flexion contracture. Procedure done: Right total knee arthroplasty with Dejuan guidance Implants: [employer] total knee system with a size 4 triathlon beaded cruciate retaining femur right, a triathlon titanium tibial component size 4 beaded, a triathlon X3 tibial bearing CS insert size 4 X 9 mm and a beaded triathlon titanium asymmetric patella size 32 x 10 mm Specimens removed/disposition: Bone, disposed of Pathology: None Surgeon: Lakshmi Reyna MD [employer] Installer: Josette Kirkland, nurse practitioner who services were required for retraction, exposure, closure, and completion of the surgical procedure Anesthesia: Spinal (With MAC, ASA 2) and Nerve Block (Adductor block) Estimated blood loss (mL): 150 Tourniquet time (min): 0 (Not utilized) IV fluids (mL): 1,400 Urine output (mL): 400 Complications: None Findings: Severe degenerative osteoarthritis with osteophytes, denudement of cartilage, valgus deformity, and flexion contracture Condition: stable Disposition: PACU (Then to floor for postoperative rehabilitation and pain management) Brief History: This 69-year-old woman presented to the office complaining of severe right knee pain secondary to advanced primary osteoarthritis with significant valgus deformity and flexion contracture. The patient was not responsive to nonoperative measures. She wished to proceed with total knee arthroplasty as she had worsening pain and decreasing function. Risks and complications of the surgery were explained to the patient. These were discussed in detail. The she had the opportunity to have questions asked and answered. Consents were signed in the office. She had further opportunity the morning of surgery to ask further questions or ask for clarification. Procedure: The patient was brought to the operating theater, and after undergoing adequate spinal anesthesia, ASA 2, with preoperative adductor block, the right lower extremity was prepped with DuraPrep and draped in usual fashion following placement of a tourniquet high on the leg. The leg was then draped free. Tourniquet was placed on the leg but was not elevated throughout the surgical procedure. Following exposure of the site of surgery, a surgical pause was performed. At the time of the surgical pause, we confirmed the site and side of surgery. Additionally, we confirmed the appropriate and timely administration of preoperative antibiotics, Ancef 2 g. Tranexamic acid 1 g was given preoperatively and will be given again on the floor for 1 dose postoperatively. The availability of equipment was confirmed, and the patient's identity was verbalized as well. Following the surgical pause, an incision was made centering over the patella continuing proximally and distally as necessary to allow access to the knee joint. Dissection continued through skin and soft tissues using a scalpel. Hemostasis was obtained using electrocautery. The skin incision was followed by a median parapatellar arthrotomy. The leg was extended, and the patella was able to be displaced laterally. Appropriate arrays and markers were placed in appropriate position for use of the Dejuan. Preoperative planning had been accomplished and was discussed in detail with the Dejuan independent sales representative. Intraoperative mapping of the femur and tibia was accomplished after the arrays were placed. Once we had accomplished the Dejuan mapping, we began the appropriate resections for placement of the prosthesis. The plan was for a cruciate retaining right total knee arthroplasty. Once appropriate mapping had been accomplished retraction was established using manual retraction by the Dejuan leg positioner and retractors. The knee was evaluated. There was eburnation particularly of the lateral femoral condyle.? There were large osteophytes about the trochlear groove as well as the patella and medial tibial plateau.? After balancing the knee within the Dejuan program, the appropriate bone resection was accomplished. Initial resection was accomplished on the tibia followed by appropriate resections on the femur. We had performed a medial release at the beginning of the procedure to allow for placement of the array. Proximal tibia was evaluated and it was felt that appropriate size for the tibia was a size 3, and appropriate femoral size was a size 4. A trial reduction was accomplished after osteophytes had been removed, the medial and lateral meniscus were excised, and bone cuts had been accomplished as above. We had removed the anterior cruciate ligament at the beginning of the case and preserved the posterior cruciate ligament. Trial reduction was accomplished with a size 4 femoral cruciate retaining component and a size 3 tibia with a CS tibial bearing insert which was 9 mm in thickness. This was increased to a size 3 x 11 mm insert. With these components, the knee had excellent stability, full extension, and full flexion. The trial components were removed after the femur had been drilled. Prior to removal of the tibial tray which had been pinned in position with appropriate rotation as determined by the Dejuan plan, we broached the tibia. Subsequently, the 4 drill holes were made for the prosthetic component. All trial components had been removed, and the wound was irrigated. Plans were made for insertion of the prosthetic components. Prior to this, the patella was prepared. After resection of the articular surface with the draining system, the patella was measured and measured a 32 mm patella. Patellar height was restored with the patellar component. Once again, the wound was irrigated. The Tritanium tibia was impacted into position.? The beaded femur was then impacted into position in a cementless fashion. The CS tibial insert was placed prior to placement of the femoral component. The patella was pressed into position with a patellar clamp. The knee was then copiously irrigated with betadine and saline and suctioned dry. Attention was then directed to closure. Closure was accomplished with 0 Vicryl in the fascial tissues followed by a running #1 strata fix 1 from proximal to distal and 1 from distal to proximal.? This was followed by Surgiflo and vancomycin powder. Subcutaneous tissues were closed with 2-0 Monocryl interrupted, and the skin was closed in a running subcuticular fashion with 3-0 Monocryl strata fix.? A sterile dressing was then placed consisting of Dermabond Prineo, OpSite, sterile soft roll including over the foot, and an Hoang wrap. The patient was returned the Recovery Room in a satisfactory condition. X-rays were obtained and reviewed there.? The patient will be discharged to the floor for postoperative rehabilitation and pain management. Related Problem List Diagnoses 1. Primary osteoarthritis of right knee: 2. Valgus deformity, not elsewhere classified, right knee: 3. Flexion contracture of right knee:
--- NOTE | 2025-09-15 14:13 | XR_ITS ---
WS: [id number] Exam: XR knee RT 1-2V [id number] Date/Time of Exam: 09/15/2025 2:13 PM Reason For Exam: POST OP Comparison 06/27/2025. RIGHT total knee replacement is in excellent position. Postop changes in the adjacent soft tissues. XR/XR knee RT 1-2V [id number] IMPRESSION: 1. RIGHT total knee replacement in excellent position.
--- NOTE | 2025-09-15 15:00 | ANE.PACU2 ---
Inpatient post-anesthesia follow up: Airway intact: Yes Vital signs: Temperature 97.6 F Pulse Rate 95 Respiratory Rate 18 Blood Pressure 135/69 Pulse Oximetry 97 Oxygen Delivery Me thod Room Air Oxygen Flow Rate Fraction of Inspir ed Oxygen Hydration adequate: Yes Nausea and vomiting: No Pain level: 1 Mental status: Baseline
[2025-09-15] MEDS: chlorhexidine gluconate 0.12% Btl 473 mL 30 ML MUCOUS MEM ×2 (15:45→23:18)
[2025-09-15] MEDS: mupirocin oint 22 gm 1 APPLIC NASAL (15:45)
[2025-09-15] MEDS: sennosides-docusate Tablet 2 TAB PO (15:45)
[2025-09-15] MEDS: tranexamic acid 1,000 MG/100 ML PREMIX 600 MG IV (17:34)
[2025-09-15] MEDS: oxyCODONE 5 mg IR Tab/Cap PO ×2 (19:24→23:14)
[2025-09-16] VITALS (7 sets, daily range): BP systolic 117–142; BP diastolic 64–79; PULSE 78–110; RESP 16–18; TEMP 36.6; O2SAT 94–97
[2025-09-16] MEDS: acetaminophen 1,000 MG/100 ML PIGGYBACK 400 MG IV ×2 (02:58→08:56)
[2025-09-16] MEDS: sennosides-docusate Tablet 2 TAB PO (05:29)
[2025-09-16] MEDS: ceFAZolin 2,000 mg SDV 2000 MG IVP ×2 (05:29→11:35)
[2025-09-16] MEDS: multivitamin therapeutic Tablet 1 TAB PO (05:30)
[2025-09-16] MEDS: oxyCODONE 5 mg IR Tab/Cap PO ×3 (05:30→15:03)
[2025-09-16] MEDS: chlorhexidine gluconate 0.12% Btl 473 mL 30 ML MUCOUS MEM ×2 (05:31→11:37)
[2025-09-16] MEDS: mupirocin oint 22 gm 1 APPLIC NASAL (05:31)
[2025-09-16 05:58] LABS: Hematocrit 30.2 % (36-47); Hemoglobin 9.90 g/dL (11.27-16.99); Mean Corpuscular HGB Conc 32.8 g/dL (30-55); Mean Corpuscular Hemoglobin 28.4 pg (27-33); Mean Corpuscular Volume 86.5 fl (85-98); Nucleated Red Blood Cells % 0 %; Platelet Count 345 10^3/cmm (157-399); Red Blood Count 3.49 10^6/uL (3.85-5.65); White Blood Count 12.11 10^3/uL (3.29-11.43)
[2025-09-16] MEDS: ondansetron 2 mg/ML SDV 2 mL 4 MG IVP (08:54)
--- NOTE | 2025-09-16 12:58 | PC.OT ---
Patient seen 12:50 to 12:54 for OT evaluation. Pt is A+Ox3 and reports 3/10 R knee pain. Pt declines to participate in ADLs stating that will help her [to especially don and doff her socks]. Pt is educated in dressing technique in donning LE garments on affected side first and doffing garments on non-affected side first. Pt states that she has no concerns going home.
--- NOTE | 2025-09-16 13:08 | PM.DCS ---
Discharge Providers Date of Admission: 09/15/25 13:49 Date of Discharge: September 16, 2025 Attending Provider at Admission: Lakshmi Reyna MD Attending Provider at Discharge: Lakshmi Reyna MD Primary Care Provider: Lucinda Sauceda MD Diagnoses at Discharge Discharge Diagnosis 1. Primary osteoarthritis of right knee: 2. Valgus deformity, not elsewhere classified, right knee: 3. Flexion contracture of right knee: 4. Status post total right knee replacement not using cement: Reason for Visit Reason for Visit: M17.01 Brief History: This 69-year-old woman presented to the office complaining of severe right knee pain secondary to advanced primary osteoarthritis with significant valgus deformity and flexion contracture. The patient was not responsive to nonoperative measures. She wished to proceed with total knee arthroplasty as she had worsening pain and decreasing function. Risks and complications of the surgery were explained to the patient. These were discussed in detail. The she had the opportunity to have questions asked and answered. Consents were signed in the office. She had further opportunity the morning of surgery to ask further questions or ask for clarification. Hospital Course Hospital Course Patient was admitted under observation status after same-day surgery for right total knee arthroplasty. The procedure was well-tolerated. Postoperatively, the patient worked with physical therapy. Her pain was well-controlled. She was felt to be safe for discharge to home. When her dressing was removed, the under dressing was dry and intact. There was minimal ecchymosis and no evidence of DVT. She was neurologically intact. Plans are made for her discharge to home to follow-up in the office as scheduled. Physical Exam Const: COMMON NORMALS: no acute distress, average body habitus, patient oriented x3 and alert GENERAL APPEARANCE: cooperative and comfortable ORIENTATION/CONSCIOUSNESS: Yes awake HENMT: COMMON NORMALS: normocephalic and atraumatic HEAD & SCALP: normocephalic and atraumatic Eye: GENERAL EYE: appearance normal, both eyes and all related structures Chest: COMMONS NORMALS: normal inspection of the chest Resp: COMMON NORMALS: normal respiratory effort EFFORT & INSPECTION: Yes able to speak in complete sentences and Yes symmetric chest movement Extremity: RIGHT LOWER EXTREMITY: Yes knee joint (Large outer dressing is removed) Right knee: Yes inspection (Dressing dry and intact with minimal ecchymosis), Yes palpation (No significant tenderness), Yes ROM (Not evaluated) and Yes neurovascular exam (Intact distally with no evidence of DVT) Neuro: COMMON NORMALS: patient oriented x3 SENSORIUM/ORIENTATION: Yes alert Psych: COMMON NORMALS: mental status grossly normal APPEARANCE: Yes grossly normal ATTITUDE: Yes calm and Yes engaged ATTENTION/CONCENTRATION: Yes attention grossly intact Skin: COMMON NORMALS: no rashes or lesions noted GENERAL SKIN EXAM: no rashes or lesions noted Urinary Catheter Management: Sheridan: Cath Placed During This Visit: yes, but has since been removed by the nurse Reason for Continuing Indwelling Catheter: Required Immobilization for Trauma or Surgery or Anesthesia Urinary Catheter Date of Insertion: 09/15/25 Urinary Catheter Time of Insertion: 11:20 Date Urinary Catheter Removed: 09/16/25 Time Urinary Catheter Discontinued: 06:00 Discharge Data Studies Completed and Pending Completed Studies During Hospitalization Category Date Time Status XR knee RT 1-2V [id number] Routine Exams 09/15/25 14:13 Completed Radiology Impressions Knee X-Ray 09/15/25 14:13 IMPRESSION: 1. RIGHT total knee replacement in excellent position. Laboratory Results WBC 12.11 10^3/uL (3.29-11.43) H 09/16/25 05:30 RBC 3.49 10^6/uL (3.85-5.65) L 09/16/25 05:30 Hgb 9.90 g/dL (11.27-16.99) L 09/16/25 05:30 Hct 30.2 % (36-47) L 09/16/25 05:30 MCV 86.5 fl (85-98) 09/16/25 05:30 MCH 28.4 pg (27-33) 09/16/25 05:30 MCHC 32.8 g/dL (30-55) 09/16/25 05:30 RDW 13.2 % (12.1-15.1) 09/16/25 05:30 Plt Count 345 10^3/cmm (157-399) 09/16/25 05:30 MPV 8.7 fL (7.4-10.4) 09/16/25 05:30 Neut % (Auto) 66.5 % 09/16/25 05:30 Lymph % (Auto) 22.7 % 09/16/25 05:30 [place] % (Auto) 10.2 % 09/16/25 05:30 Eos % (Auto) 0.1 % 09/16/25 05:30 Baso % (Auto) 0.2 % 09/16/25 05:30 Neut # (Auto) 8.05 10^3/uL (1.8-7.7) H 09/16/25 05:30 Lymph # (Auto) 2.8 10^3/uL (0.8-4.8) 09/16/25 05:30 [place] # (Auto) 1.2 10^3/uL (0.2-0.9) H 09/16/25 05:30 Eos # (Auto) 0.0 10^3/uL (0.0-0.8) 09/16/25 05:30 Baso # (Auto) 0.0 10^3/uL (0.0-0.1) 09/16/25 05:30 Nucleated RBC % (auto) 0 % 09/16/25 05:30 Nucleated RBCs # 0.0 /100WBC 09/16/25 05:30 Vitals Last Vital Signs Temp 97.9 F 09/16/25 11:13 Pulse 80 09/16/25 11:13 Resp 18 09/16/25 11:34 BP 118/64 09/16/25 11:13 Pulse Ox 97 09/16/25 11:13 O2 Del Method Room Air 09/16/25 11:13 Discharge Plan Discharge Patient Disposition: Home Health Service Condition: Stable Prescriptions: New acetaminophen 500 mg Tablet 1,000 mg PO Q8H 15 Days Qty: 90 0RF aspirin 325 mg Tablet,Delayed Release (Dr/Ec) 325 mg PO DAILY 30 Days Qty: 30 0RF celecoxib 200 mg Capsule 200 mg PO 1XD 30 Days Qty: 30 0RF oxycodone 5 mg Tablet 5 mg PO Q4H PRN (Reason: Moderate To Severe Pain) 7 Days Qty: 40 0RF Continued cyclobenzaprine 10 mg tablet 10 mg PO TID 30 Days Qty: 90 0RF lisinopril 10 mg tablet 10 mg PO DAILY oxcarbazepine 300 mg tablet 300 mg PO QID lisinopril 5 mg tablet 5 mg PO BID calcium carbonate [Calcium 600] 600 mg calcium (1,500 mg) Tablet 600 mg PO DAILY cholecalciferol (vitamin D3) [Vitamin D3] 125 mcg (5,000 unit) Tablet 125 mcg PO DAILY magnesium carb,citrate,oxide 300 mg magnesium Tablet 300 mg PO DAILY Discharge Order = DC NOW: Discharge Order (Routine); Ordered 09/16/25 Ordered By: Lakshmi Reyna Referrals: [facility] ([facility]) [Outside] Lakshmi Reyna MD [Physician, Orthopedics] - 10/03/25 11:15 am Discharge Diet: Advance as tolerated and Usual diet Discharge Activity: Increase activity as tolerated, Limit activity as instructed, Use walker/crutches as instructed and As per PT/OT instructions Patient Instructions: Oxycodone, Rapid Release (By mouth), Celecoxib (By mouth), Acute Wound Care (DC), Operative Knee Arthroscopy (DC), Opioid Safety, Post Anesthesia Care, Patient Portal & Eduardo Instructions Activity Restrictions/Additional Instructions: Range of motion, strengthening, and gait training per physical therapy. Weight-bear as tolerated. You may shower and get your knee wet, but do not submerge it in water such as a swimming pool. If the dressing lifts up and begins to leak, you may remove it. Otherwise it may stay in place until you are seen in the office. Discharge Attestations Time Spent in Discharge Care*: greater than 30 min Specific Discharge Activities: educating patient, documenting/other paperwork and evaluating patient/reviewing data Quality Metrics Clinical Quality Measures [ No reported AMI, CVA or VTE this stay] Coding Level of Care Code Acute Code for Chg Fwd Diagnoses Primary osteoarthritis of right knee M17.11 Valgus deformity, not elsewhere classified, right knee M21.061 Flexion contracture of right knee M24.561 Status post total right knee replacement not using cement Z96.651
== END 2025-09-16 15:18 | disposition home health service (06) ==
LOC: MEDSURG 13:50
PROVIDERS: Admitting Provider Specialist; PCP Family Medicine; Visit Provider Specialist
PROC: 8E0Y0CZ Robotic Assisted Procedure of Lower Extremity, Open Approach (ICD-10-PCS; CPT 27447; principal; 2025-09-15 10:45)
DX: M17.11 Unilateral primary osteoarthritis, right knee (principal); M21.061 Valgus deformity, not elsewhere classified, right knee; M24.561 Contracture, right knee; I10 Essential (primary) hypertension; G50.0 Trigeminal neuralgia
CPT/HCPCS: 27447; 20985; 36415; 51702; 73560; 85025; 97110; 97116; 97162; 97530; A4216; A4649; C1776; G0378; J0131; J0690; J1100; J2250; J2405; J2704; J2795; J3373; J7030; J9999

== ENCOUNTER → 2025-10-03 10:46 | Outpatient (BNVA) | payer MEDICARE, SELFPAY | PROVIDERS: PCP Family Medicine; Visit Provider Specialist | DX: Z98.890 Other specified postprocedural states (principal); Z96.651 Presence of right artificial knee joint | CPT/HCPCS: 73560; 73565; 99024 ==

== ENCOUNTER 2025-11-02 07:28 | Outpatient (RCR) | payer MEDICARE, SELFPAY | END 2025-11-02 23:59 | disposition home or self-care (01) | LOC: SPT 07:28 | PROVIDERS: Visit Provider Nurse Practitioner | DX: Z47.1 Aftercare following joint replacement surgery (principal); Z96.651 Presence of right artificial knee joint | CPT/HCPCS: 97161 ==